=== PATIENT | female | born 1955 | race Caucasian/White ===

== ENCOUNTER 2016-12-06 16:38 | Emergency (ER) | payer OTHER ==
[~2016-12-06] VITALS: Ht 167.6 cm; Wt 65.8 kg
[~2016-12-06 16:38] MED LIST: ASPIRIN81 M4 PO; ATENOLOL25 MG PO; ATORVASTATIN CA20 M1 PO; BUTALB-ACETAMI1 EACH PO; CARAFATE1 GM/10 ML PO; CYCLOBENZAPRINE5 M2 PO; FIORICET 50-301 EACH PO; FIORINAL 325 M1 CAP PO; IMITREX6 MG/0.51 SC; LORAZEPAM0.5 M1 PO; LORAZEPAM0.5 MG PO; MECLIZINE HCL12.5 M1 PO; PREDNISONE10 M2 PO; REGLAN10 M1 PO; REGLAN10 MG PO; SUMATRIPTA6 MG/0.51; VALIUM5 M1 PO; WELLBUTRIN100 M1; ZOFRAN ODT4 MG PO
--- NOTE | 2016-12-06 17:11 | ED HEADACHE COMPLAINT ---
History of Present Illness General Chief Complaint: Headache Stated Complaint: REYES [id number] Source: patient, old records Exam Limitations: no limitations Vital Signs & Intake/Output Vital Signs & Intake/Output Vital Signs Date Time Temp Pulse Resp B/P Pulse O2 O2 Flow FiO2 Ox Delivery Rate 12/06 1916 97.5 66 18 138/84 97 Room Air Room Air 12/06 1643 97.8 70 20 157/87 96 Room Air Allergies Coded Allergies: hydromorphone (Severe, THROAT FEELS LIKE IT'S CLOSING/RASH 12/06/16) dexlansoprazole (RASH 12/06/16) NSAIDS (Non-Steroidal Anti-Inflamma (ABDOMINAL PAIN 12/06/16) Reconcile Medications Aspirin (Aspirin*) 81 MG TAB.CHEW 81 MG PO DAILY blood Butalb/Acetaminophen/Caffeine (Fioricet 50-300-40 MG Capsule) 50 MG-300 MG-40 MG CAPSULE 1-2 CAP PO Q6PRN PRN headache (Reported) Diazepam (Valium) 5 MG TABLET 1 TAB PO BID PRN PAIN Levothyroxine Sodium 25 MCG TABLET 1 TAB PO DAILY THYROID (Reported) Lorazepam 0.5 MG TABLET 0.5 TAB PO QHS PRN anxiety (Reported) Meclizine HCl 12.5 MG TABLET 1 TAB PO PRN DIZZINESS (Reported) Methylprednisolone. (Medrol) 4 MG TAB.DS.PK 1 DP PO AD MIGRAINE 6 on day 1 then reduce by one tablet daily until gone Metoclopramide HCl (Reglan) 10 MG TABLET 1 TAB PO 4 TIMES/DAY nausea ( Reported) 30 minutes before meals and bedtime Triage Note: TRIAGE: PT TO ER C/C HEAD PAIN SINCE FRIDAY. TRIED FIORICET, IMITREX, RELPAX, ASPIRIN AND TYLENOL WITH NO RELIEF. HX OF MIGRAINES. Triage Nurses Notes Reviewed? yes Onset: Gradual Duration: week(s): (1), constant Timing: recent history Quality/Severity: moderate Severity Numbers: 6 Head Injury Location: occipital No Modifying Factors: none Associated Symptoms: denies HPI: This is a 61-year-old female with history of migraines who is neurologist is out of [place] presents today complaining of persistent posterior headache that she's had for the past 1 week for which she is discharged all of her medications including Imitrex Relpax Tylenol aspirin fioricet without improvement. She states this feels like a typical migraine. She denies any vision changes at this time are states that intermittently she has blurry vision which is not new. She denies any nausea or vomiting. There is been no recent fall or head trauma no fever no chills no neck pain or stiffness. She denies any chest pain abdominal pain shortness of breath or any other symptoms. (KAREN MOSCOSO) Past History Travel History Traveled to [place] past 21 day No Medical History Any Pertinent Medical History? 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 No (KAREN MOSCOSO) Review of Systems Review of Systems Constitutional: Reports: see HPI. All Other Systems: Reviewed and Negative Comments Review of systems: See HPI, All other systems negative. Constitutional, no chills no fever, no malaise HEENT: no sore throat no congestion Cardiovascular: No chest pain , no palpitation Skin, no jaundice no rashes, no change in skin Respiratory: No dyspnea no cough no sputum GI: No nausea no vomiting, no diarrhea, : No dysuria Muscle skeletal: No joint pain, no back pain, no neck pain, Neurologic: No numbness, headache Psych: No stress Heme/endocrine: No bruising no bleeding Immunology: No lymphadenopathy (KAREN MOSCOSO) Physical Exam Physical Exam General Appearance: well developed/nourished, no apparent distress, alert, awake Cranial Nerves: normal hearing, normal speech, PERRL Comments: Well-developed well-nourished person in no acute distress HEENT: Normal EENT exam; PERRL, EOMI, no nystagmus. HEAD is atraumatic. moist mucous membranes. no facial tenderness Neck: Supple, no lymphadenopathy, normal range of motion without pain or tenderness Back: Nontender, no CVA tenderness. Full range of motion Cardiovascular: Regular rate and rhythms no murmurs rubs Respiratory: No respiratory distress. Patient speaking in full complete sentences. Breath sounds clear to auscultation bilaterally: NO W/R/R Abdomen: Soft, nontender nondistended, Extremity: No edema, full range of motion of extremities, normal and equal pulses bilaterally, 5 out of 5 strength noted to bilateral upper and lower extremities Neuro: Alert oriented x3, motor sensory normal, cranial nerves II through XII grossly intact. There were no obvious focal neurologic abnormalities. Negative Brudzinski's Skin: No appreciable rash on exposed skin, skin is warm and dry. Psych: Mood and affect is normal, memory and judgment is normal. Core Measures Severe Sepsis Present: No Septic Shock Present: No (KAREN MOSCOSO) Progress Differential Diagnosis: cluster REYES, encephalitis, IC mass/tumor, intracranial Hem., meningitis, migraine REYES, musculoskeletal pain, sinusitis, subarach. Hem., tension REYES Plan of Care: Current Medications Sig/David Start time Last Medication Dose Stop Time Status Admin Sodium Chloride 1,000 ML BOLUS ONE 12/06 1730 AC (Normal Saline 0.9%) 12/06 1829 Dexamethasone 4 MG ONCE ONE 12/06 1715 AC (Decadron) 12/06 1744 Dextrose/Water 50 ML (D5W) There is been no recent fall or trauma. Patient reports that when she's been administered steroids in addition to pain medicine that helps her migraines. The allergies were reviewed with the patient she states that anti-inflammatories upset her stomach however she's had no past history of allergic reactions to anti-inflammatories. Patient has been medicated multiple times in the past with Toradol with good effect she is allergic to Dilaudid IV fluids ordered imaging was deferred which the patient is agreement with. 1899 reevaluation patient reports improvement in her headache prescription for Medrol Dosepak and Valium provided advised she continue with her migraine medications as prescribed follow-up with her neurologist on Friday and return anytime sooner if patient feels comfortable plan (KAREN MOSCOSO) Departure Departure Time of Disposition: 1857 Disposition: HOME OR SELF CARE Condition: Stable Clinical Impression Primary Impression: Migraine Referrals: LISBET LEARY,STACEY Aponte (PCP/Family) Additional Instructions: Follow-up with your primary care physician as well as neurologist on Friday. Valium and Medrol Dosepak as directed these prescriptions were sent to your pharmacy continue taking her migraine medication as directed return anytime sooner with any concerns Departure Forms: Customer Survey General Discharge Information Prescriptions: Current Visit Scripts Diazepam (Valium) 1 TAB PO BID PRN PAIN #10 TAB Methylprednisolone. (Medrol) 1 DP PO AD #1 DP 6 on day 1 then reduce by one tablet daily until gone (YANELY GARCIA,KAREN) PA/[employer] Co-Sign Statement Statement: ED Attending supervision documentation- [] I saw and evaluated the patient. I have also reviewed all the pertinent lab results and diagnostic results. I agree with the findings and the plan of care as documented in the PA's/[employer]'s documentation. [x] I have reviewed the ED Record and agree with the PA's/[employer]'s documentation. [] Additions or exceptions (if any) to the PAs/[employer]'s note and plan are summarized below: [] (LEATHA LEARY,ROB Victor)
[2016-12-06] MEDS ORDERED: LEVOTHYROXINE25 MCG PO (18:38)
[2016-12-06] MEDS ORDERED: VALIUM5 M2 PO (19:00)
[2016-12-06] MEDS ORDERED: MEDROL4 M2 PO (19:00)
[2016-12-06 19:17] VITALS: BP 138/84
== END 2016-12-06 19:18 ==
LOC: ERH 16:38
DX: G43.909 Migraine, unspecified, not intractable, without status migrainosus (principal)
CPT/HCPCS: 96361; 96374; 96375; J1100; J1200; J1885

== ENCOUNTER 2016-12-11 10:31 | Emergency (ER) | payer OTHER ==
[~2016-12-11] VITALS: Ht 167.6 cm; Wt 65.8 kg
[~2016-12-11 10:31] MED LIST changes: +LEVOTHYROXINE25 MCG PO; +MEDROL4 M2 PO; +VALIUM5 M2 PO
[2016-12-11 13:46] VITALS: BP 145/75
--- NOTE | 2016-12-11 14:27 | ED GENERAL ADULT ---
History of Present Illness General Chief Complaint: General Adult Stated Complaint: RAPID RESPONSE AT OUTPT LAB,N/V, ABD CRAMP,RESTLES Source: patient, old records, friend Exam Limitations: no limitations Vital Signs & Intake/Output Vital Signs & Intake/Output Vital Signs Date Time Temp Pulse Resp B/P Pulse O2 O2 Flow FiO2 Ox Delivery Rate 12/11 1346 73 16 145/75 96 Room Air 12/11 1259 97.6 74 16 144/69 95 Room Air 12/11 1200 98.0 12/11 1157 98.0 74 22 135/64 96 Room Air 12/11 1109 97 12/11 1033 98.2 80 18 172/80 97 Room Air Allergies Coded Allergies: hydromorphone (Severe, THROAT FEELS LIKE IT'S CLOSING/RASH 12/06/16) dexlansoprazole (RASH 12/06/16) NSAIDS (Non-Steroidal Anti-Inflamma (ABDOMINAL PAIN 12/06/16) Reconcile Medications Aspirin (Aspirin*) 81 MG TAB.CHEW 81 MG PO DAILY blood Butalb/Acetaminophen/Caffeine (Fioricet 50-300-40 MG Capsule) 50 MG-300 MG-40 MG CAPSULE 1-2 CAP PO Q6PRN PRN headache (Reported) Diazepam (Valium) 5 MG TABLET 1 TAB PO BID PRN PAIN Levothyroxine Sodium 25 MCG TABLET 1 TAB PO DAILY AC THYROID (Reported) Lorazepam 0.5 MG TABLET 0.5 TAB PO QHS PRN anxiety (Reported) Meclizine HCl 12.5 MG TABLET 1 TAB PO PRN DIZZINESS (Reported) Methylprednisolone. (Medrol) 4 MG TAB.DS.PK 1 DP PO AD MIGRAINE 6 on day 1 then reduce by one tablet daily until gone Metoclopramide HCl (Reglan) 10 MG TABLET 1 TAB PO 4 TIMES/DAY nausea ( Reported) 30 minutes before meals and bedtime Core Measure Meds Pre-Hospital aspirin Triage Note: PT BROUGHT OVER FROM BLOOD DRAW. PT WAS GETTING BLOOD DRAWN THIS AM AND AND STATES SHE FELT SICK PT STATES SHE HAS BEEN SHAKY AND RESTLESS WITH LIGHTHEADEDNESS. PT STATES SHE HAS BEEN GETTING REYES AND NAUSEA FOR A FEW WEEKS. PT WAS HERE TO GET LABS DRAWN THAT HER PCP ORDERED. Triage Nurses Notes Reviewed? yes Onset: Just prior to arrival Duration: minute(s):, constant, continues in ED Timing: recent history Injury Environment: blood draw Severity: severe No Modifying Factors: none LMP (ages 10-50): post menopausal : No Patient currently breastfeeds: No HPI: Prior to admission while having blood drawn patient became lightheaded dizzy week with palpitations anxiety diaphoresis and headache She also complains of chronic abdominal pain loss of appetite nausea. She denies fever chills chest pain cough shortness of breath dysuria rash bleeding. She feels issues may be related to thyroid medication. Past History Travel History Traveled to [place] past 21 day No Medical History Any Pertinent Medical History? 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 No Review of Systems Review of Systems Constitutional: Reports: see HPI, malaise, weakness. EENTM: Reports: no symptoms. Respiratory: Reports: no symptoms. Cardiovascular: Reports: no symptoms. GI: Reports: see HPI, abdominal pain, nausea. Genitourinary: Reports: no symptoms. Musculoskeletal: Reports: no symptoms. Skin: Reports: no symptoms. Neurological/Psychological: Reports: see HPI, confusion. Hematologic/Endocrine: Reports: no symptoms. Immunologic/Allergic: Reports: no symptoms. All Other Systems: Reviewed and Negative Physical Exam Physical Exam General Appearance: well developed/nourished, no apparent distress, awake, anxious, moderate distress, thin Head: atraumatic, normal appearance Eyes: Bilateral: normal appearance, PERRL, EOMI. Ears, Nose, Throat: normal pharynx, normal ENT inspection Neck: normal inspection, supple, full range of motion, no midline tenderness Respiratory: normal breath sounds, chest non-tender, no respiratory distress, quiet respiration, lungs clear Cardiovascular: regular rate/rhythm, normal peripheral pulses, norml femoral pulses equa Peripheral Pulses: 4+ carotid (R), 4+ carotid (L), 2+ radial (R), 2+ radial (L) Gastrointestinal: normal bowel sounds, soft, non-tender, no organomegaly Back: normal inspection, normal range of motion Extremities: normal inspection, normal capillary refill, normal range of motion, no edema Neurologic/Psych: no motor/sensory deficits, awake, alert, oriented x 3, clean out driller II- XII nml as tested Reflexes: 2+: bicep (R), bicep (L). Skin: intact, normal color, warm/dry Lymphatic: no anterior cervical alexandro Core Measures ACS in differential dx? Yes CVA/TIA Diagnosis: No Severe Sepsis Present: No Septic Shock Present: No Progress Differential Diagnoses I considered the following diagnoses in my evaluation of the patient: Acute [place] medication reaction hypoglycemia Plan of Care: Orders Procedure Date/time Status EKG 12/11 1051 Active Add-on Test (ER Only) 12/11 105 Active Initial ED EKG: normal axis, normal intervals, normal p-waves, normal QRS complex, normal sinus rhythm, no ST T wave changes Prior EKG: unchanged Rhythm Strip: normal sinus rhythm Departure Departure Time of Disposition: 1424 Disposition: HOME OR SELF CARE Condition: Stable Clinical Impression Primary Impression: Palpitations Secondary Impressions: Abdominal pain Qualifiers: Abdominal location: unspecified location Qualified Code: R10.9 - Unspecified abdominal pain Medication reaction Referrals: LISBET LEARY,STACEY Aponte (PCP/Family) Departure Forms: Customer Survey General Discharge Information Critical Care Note Critical Care Note Critical Care Time: non-applicable
== END 2016-12-11 14:44 ==
LOC: ERH 10:31
DX: T50.905A Adverse effect of unspecified drugs, medicaments and biological substances, initial encounter (principal); R00.2 Palpitations; R10.9 Unspecified abdominal pain
CPT/HCPCS: 93005; 93010; 96365; 96375; J0131; J2405

== ENCOUNTER 2017-02-18 10:10 | Emergency (ER) | payer OTHER ==
[~2017-02-18] VITALS: Ht 167.6 cm; Wt 64.4 kg
--- NOTE | 2017-02-18 11:16 | ED GENERAL ADULT ---
History of Present Illness General Chief Complaint: Headache Stated Complaint: MIGRAINE Source: patient, old records Exam Limitations: no limitations Vital Signs & Intake/Output Vital Signs & Intake/Output Vital Signs Date Time Temp Pulse Resp B/P Pulse O2 O2 Flow FiO2 Ox Delivery Rate 02/18 1730 71 18 144/68 968 Room Air 02/18 1725 97.0 77 18 139/74 98 02/18 1530 97.8 02/18 1510 85 18 145/70 98 Room Air 02/18 1258 87 18 142/69 97 Room Air 02/18 1235 67 18 169/76 96 Room Air 02/18 1152 Room Air 02/18 1018 97.5 74 20 135/80 99 Room Air Allergies Coded Allergies: hydromorphone (Severe, THROAT FEELS LIKE IT'S CLOSING/RASH 12/06/16) dexlansoprazole (RASH 12/06/16) NSAIDS (Non-Steroidal Anti-Inflamma (ABDOMINAL PAIN 12/06/16) Reconcile Medications Butalb/Acetaminophen/Caffeine (Fioricet 50-300-40 MG Capsule) 50 MG-300 MG-40 MG CAPSULE 1-2 CAP PO Q6PRN PRN headache (Reported) Levothyroxine Sodium 25 MCG TABLET 1 TAB PO DAILY AC THYROID (Reported) Lorazepam 0.5 MG TABLET 0.5 TAB PO DAILY ANXIETY (Reported) Lorazepam (Ativan) 1 MG TABLET 1 TAB PO QPM ANXIETY (Reported) Meclizine HCl 12.5 MG TABLET 1 TAB PO PRN DIZZINESS (Reported) Ondansetron (Zofran Odt) 4 MG TAB.RAPDIS 1 TAB SL TID PRN NAUSEA/VOMITING ( Reported) Triage Note: PT TO ED C/O MIGRAINE "ON AND OFF" FOR A FEW WEEKS. HAS BEEN TAKING MEDS WITH NO RELIEF. PT ALSO C/O ABD CRAMPING AND NECK PAIN FOR A FEW WEEKS. C/O N/D, DENIES VOMITING. Triage Nurses Notes Reviewed? yes Onset: Gradual Duration: week(s): (2) Timing: recent history Injury Environment: home Severity: moderate Severity Numbers: 8 No Modifying Factors: none HPI: Patient is a 61-year-old female with history of migraines presenting to the emergency Department chief complaint of frontal headache going on for the past 2 weeks. Patient reports to spend coming and going, little to no relief with medications that she takes for migraines. Denies any fevers or chills. Positive nausea but no vomiting. Symptoms were worse last night associated to come in today. She was up all night with her headache. She took one dose of her migraine medication yesterday but nothing overnight. Also reports that this morning she woke up and started developing some abdominal discomfort and cramping and diarrhea. She's had 3 episodes of nonbloody diarrhea. No vomiting. Denies recent antibiotic use. This feels similar to migraines that she gets but it is lasting longer than usual. Denies any visual changes. (KARMA MCARTHUR) Past History Travel History Traveled to [place] past 21 day No Medical History Any Pertinent Medical History? 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 No (KARMA MCARTHUR) Review of Systems Review of Systems Constitutional: Reports: malaise. Comments Review of systems: See HPI, All other systems negative. Constitutional, no chills fever or weight loss HEENT: No visual changes no sore throat no congestion Cardiovascular: No chest pain ,palpitation , orthopnea or ankle swelling Skin, no jaundice no rashes Respiratory: No dyspnea cough sputum or hemoptysis GI: no vomiting : No dysuria No hematuria Muscle skeletal: no back pain, no neck pain, Neurologic: No numbness no confusion Psych: No increased stress anxiety or depression,. Heme/endocrine: No bruising no bleeding no polyuria or polydipsia Immunology: No splenectomy or history of AIDS (KARMA MCARTHUR) Physical Exam Physical Exam General Appearance: well developed/nourished, no apparent distress, alert, awake , comfortable Comments: Well-developed well-nourished person in no acute distress HEENT: Normal EENT exam, extraocular motion intact, no nystagmus. Pupils equally round and reactive to light and accommodation. Nose is atraumatic. External auditory canal and Tympanic membranes clear. Pharynx normal. No swelling or edema. Mild tenderness to palpation over the frontal bone. Funduscopic: Somewhat limited secondary did not elevation although no obvious retinal detachment or penis making appreciated. Neck: Supple, no lymphadenopathy, normal range of motion without pain or tenderness. No meningeal signs. Negative Kernig's and Brudzinski's. Back: Nontender Cardiovascular: Regular rate and rhythms no murmurs rubs or gallops, normal JVP Respiratory: Chest nontender. No respiratory distress.breath sounds clear to auscultation bilaterally Abdomen: Soft, mildly tender to palpation in the left lower quadrant without rebound or guarding, nondistended, no appreciable organomegaly. Normal bowel sounds. No ascites Extremity: No edema Neuro: Alert oriented x3, motor sensory normal, cranial nerves II through XII grossly intact. Cerebellar testing is unremarkable. Skin: No appreciable rash on exposed skin, skin is warm and dry. Psych: Mood and affect is normal, memory and judgment is normal. Core Measures ACS in differential dx? No CVA/TIA Diagnosis: No Severe Sepsis Present: No Septic Shock Present: No (RAMSES GARCIA,KARMA) Progress Differential Diagnoses I considered the following diagnoses in my evaluation of the patient: Migraine headache, meningitis, dehydration, electrolyte abnormality, viral syndrome, viral labyrinthitis, Mnire's disease Plan of Care: Orders Procedure Date/time Status Heart Healthy Diet 02/18 L Active TOTAL TRIODOTHYROXINE 02/18 1125 Complete FREE T4 02/18 1125 Complete URINALYSIS 02/18 1115 Complete TSH REFLEX 02/18 1115 Complete LIPASE 02/18 1115 Complete WESTERGREN SED RATE 02/18 1115 Complete COMPREHENSIVE METABOLIC PANEL 02/18 1115 Complete CBC WITHOUT DIFFERENTIAL 02/18 1115 Complete AMYLASE 02/18 1115 Complete Laboratory Tests 02/18/17 1208: Urine Color STRAW, Urine Clarity CLEAR, Urine pH 7.0, Ur Specific Worden <= 1.005, Urine Protein NEG, Urine Ketones NEG, Urine Nitrite NEG, Urine Bilirubin NEG, Urine Urobilinogen 0.2, Ur Leukocyte Esterase NEG, Ur Microscopic EXAM NOT REQUIRED, Urine Hemoglobin NEG, Urine Glucose NEG 02/18/17 1125: Anion Gap 9, Estimated GFR > 60, BUN/Creatinine Ratio 8.3, Glucose 88, Calcium 9.7, Total Bilirubin 0.6, AST 17, ALT 34, Alkaline Phosphatase 62, Total Protein 6.8, Albumin 4.1, Globulin 2.7, Albumin/Globulin Ratio 1.5, Amylase 50, Lipase 117, Free T4 0.97, Total T3 1.65, TSH &T3 &Free T4 Intrp 6.550 H, CBC w Diff NO MAN DIFF REQ, RBC 4.65, MCV 89.2, MCH 30.1, RDW 13.3, MPV 8.4, Gran % 63.9, Lymphocytes % 26.9, Monocytes % 6.1, Eosinophils % 1.4, Basophils % 1.7, Absolute Granulocytes 3.6, Absolute Lymphocytes 1.5, Absolute Monocytes 0.3, Absolute Eosinophils 0.1, Absolute Basophils 0.1, PUBS MCHC 33.7, ESR Westergren 3 Diagnostic Imaging: Viewed by Me: CT Scan. Discussed w/RAD: CT Scan. Radiology Impression: PATIENT: RED CHAVEZ PRESENT AGE: 61 PATIENT ACCOUNT NO: [id number] : 53 LOCATION: [facility] ORDERING PHYSICIAN: KARMA GARCIA SERVICE DATE: 02/18/17 EXAM TYPE: CAT - CT HEAD WO IV CONTRAST EXAMINATION: CT HEAD WITHOUT CONTRAST CLINICAL INFORMATION: Headaches. No relief with medication. COMPARISON: 09/12/2016 TECHNIQUE: Contiguous axial imaging was performed from the skull base to vertex without intravenous contrast. DLP: 682 mGy-cm. FINDINGS: There is no evidence of acute intracranial hemorrhage or territorial infarction. No abnormal mass effect or midline shift is seen. Domínguez to white matter differentiation is well preserved. No extra-axial fluid collections are identified. No hydrocephalus. Cavum septum pellucidum and vergae. No significant volume loss. There is no abnormal attenuation within the brain parenchyma. The osseous structures and soft tissues are normal. The mastoid air cells and visualized portions of the paranasal sinuses are well aerated. IMPRESSION: No acute intracranial pathology. DICTATED BY: GUALBERTO LEARY,KAMALA DATE/TIME DICTATED:02/18/171356 ORGANIZATIONAL CONSULTANT:OSMEL DATE/TIME TRANSCRIBED:02/18/171356 CONFIDENTIAL, DO NOT COPY WITHOUT APPROPRIATE AUTHORIZATION. <Electronically signed in Other Vendor System> SIGNED BY: KAMALA BURCIAGA MD 02/18/17 1402 Initial ED EKG: none Comments: 02/18/2017 11:49:24 AM patient medicated with IV fluids, Phenergan arrival for headache. We'll assess CBC, CMP, thyroid function. Patient has negative meningeal sounds and is afebrile. Unlikely meningitis. Patient has history of migraines and feels similarly, likely exacerbation of migraine or viral syndrome on top of migraine. 02/18/2017 12:16:41 PM patient having little to no relief with Phenergan. Patient will be medicated with medication she was given last visit. Patient reports that the Toradol and the lorazepam helped. 02/18/2017 1:03:52 PM patient reports little change in symptoms after Toradol and lorazepam. Still feeling dizzy. Secondary to questionable history of TIA in the past patient will go for CT of the head. Patient is neurologically intact. 02/18/2017 4:45:37 PM patient reports that the headache is feeling much better after rest. Patient reports that she still feeling drowsy after the medications. Unable to have anyone pick her up. She will wait here for the next little while, given dinner. Patient will be discharged home once drowsiness from medication has worn off. (KARMA MCARTHUR) Departure Departure Time of Disposition: 163 Disposition: HOME OR SELF CARE Condition: Stable Clinical Impression Primary Impression: Migraine Qualifiers: Migraine type: unspecified Status migrainosus presence: without status migrainosus Intractability: not intractable Qualified Code: G43.909 - Migraine, unspecified, not intractable, without status migrainosus Referrals: LISBET LEARY,STACEY Aponte (PCP/Family) Additional Instructions: Follow-up with your primary care physician call to make an appointment. Take all medications for migraines. Increase fluid intake. Return for worsening symptoms or concerns. Departure Forms: Customer Survey General Discharge Information (KARMA MCARTHUR) PA/OTA Co-Sign Statement Statement: ED Attending supervision documentation- [] I saw and evaluated the patient. I have also reviewed all the pertinent lab results and diagnostic results. I agree with the findings and the plan of care as documented in the PA's/OTA's documentation. [x] I have reviewed the ED Record and agree with the PA's/OTA's documentation. [] Additions or exceptions (if any) to the PAs/OTA's note and plan are summarized below: [] (ZEE MASON,MAURILIO Urbina) Critical Care Note Critical Care Note Critical Care Time: non-applicable (RAMSES GARCIA,KARMA)
[2017-02-18 11:32] LABS: ABSOLUTE BASOPHIL COUNT 0.1 /CUMM (0.0-0.2); ABSOLUTE EOSINOPHIL COUNT 0.1 /CUMM (0.0-0.7); ABSOLUTE GRANULOCYTE CT 3.6 /CUMM (1.4-6.5); ABSOLUTE LYMPH COUNT 1.5 /CUMM (1.2-3.4); ABSOLUTE MONOCYTE COUNT 0.3 /CUMM (0.10-0.60); BASOPHIL % 1.7 % (0.0-2.0); EOSINOPHIL % 1.4 % (0-5); GRANULOCYTE % 63.9 % (42.2-75.2); HEMATOCRIT 41.5 % (37-47); MEAN CORPUSCULAR HGB 30.1 PG (27.0-31.0); MEAN CORPUSCULAR HGB CONC 33.7 G/DL (33.0-37.0); MEAN CORPUSCULAR VOLUME 89.2 FL (81.0-99.0); MEAN PLATELET VOLUME 8.4 FL (7.4-10.4); PLATELET COUNT 236 /CUMM (130-400); RBC DISTRIBUTION WIDTH 13.3 % (11.5-14.5); RED BLOOD CELL CT 4.65 /CUMM (4.20-5.40); WHITE BLOOD CELL COUNT 5.6 /CUMM (4.8-10.8)
[2017-02-18] MEDS ORDERED: ATIVAN1 M1 PO (12:09)
[2017-02-18] MEDS ORDERED: ZOFRAN ODT4 M1 SL (12:10)
--- NOTE | 2017-02-18 14:02 | CT SCAN REPORT ---
EXAMINATION: CT HEAD WITHOUT CONTRAST CLINICAL INFORMATION: Headaches. No relief with medication. COMPARISON: 09/12/2016 TECHNIQUE: Contiguous axial imaging was performed from the skull base to vertex without intravenous contrast. DLP: 682 mGy-cm. FINDINGS: There is no evidence of acute intracranial hemorrhage or territorial infarction. No abnormal mass effect or midline shift is seen. Domínguez to white matter differentiation is well preserved. No extra-axial fluid collections are identified. No hydrocephalus. Cavum septum pellucidum and vergae. No significant volume loss. There is no abnormal attenuation within the brain parenchyma. The osseous structures and soft tissues are normal. The mastoid air cells and visualized portions of the paranasal sinuses are well aerated. IMPRESSION: No acute intracranial pathology.
[2017-02-18 17:30] VITALS: BP 144/68
== END 2017-02-18 17:35 ==
LOC: ERH 10:10
PROVIDERS: Physician Assistant
DX: G43.909 Migraine, unspecified, not intractable, without status migrainosus (principal)
CPT/HCPCS: 81003; 96374; 96375; J1200; J1885; J2550

== ENCOUNTER 2017-03-11 12:24 | Inpatient (IN) | payer OTHER ==
[~2017-03-11] VITALS: Ht 167.6 cm; Wt 64.4 kg
[~2017-03-11 12:24] MED LIST changes: +ATIVAN1 M1 PO; +ZOFRAN ODT4 M1 SL
--- NOTE | 2017-03-11 12:33 | NUR ---
PT SENT IN BY STACEY RFAUSTO WHO WOULD LIKE PT CHECKED R/ [place] OR POSSIBLE TIA. PT WITH HX OF MIGRAINES, WEAKNESS AND FEELING DIZZY. LAST EVENING ABOUT 0400 PT HAD CHEST PAIN THAT LASTED 5 HOURS AND SOME NAUSEA AND DIAPHORESIS. AT 0700 PT HAD SOME LIP NUMBNESS. PT CAN BE REACHED AT [phone] OR HIS CELL IS [phone].
--- NOTE | 2017-03-11 13:42 | NUR ---
TAKEN TO RADIOLOGY FROM WAITING ROOM; THEN TO GO TO ROOM 1
--- NOTE | 2017-03-11 14:10 | NUR ---
BLOODWORK, BLUE,TIERNEY,LAV,SST AND PINK TOP TUBES DRAWN VIA STRAIGHT STICK, SENT TO LAB.
[2017-03-11 14:19] LABS: ABSOLUTE BASOPHIL COUNT 0 /CUMM (0.0-0.2); ABSOLUTE EOSINOPHIL COUNT 0 /CUMM (0.0-0.7); ABSOLUTE GRANULOCYTE CT 5.6 /CUMM (1.4-6.5); ABSOLUTE LYMPH COUNT 1.6 /CUMM (1.2-3.4); ABSOLUTE MONOCYTE COUNT 0.4 /CUMM (0.10-0.60); BASOPHIL % 0.3 % (0.0-2.0); EOSINOPHIL % 0.5 % (0-5); HEMATOCRIT 41.5 % (37-47); MEAN CORPUSCULAR HGB 29.9 PG (27.0-31.0); MEAN CORPUSCULAR VOLUME 87.9 FL (81.0-99.0); MEAN PLATELET VOLUME 8.2 FL (7.4-10.4); PLATELET COUNT 241 /CUMM (130-400); RBC DISTRIBUTION WIDTH 13.2 % (11.5-14.5); RED BLOOD CELL CT 4.73 /CUMM (4.20-5.40); WHITE BLOOD CELL COUNT 7.7 /CUMM (4.8-10.8)
--- NOTE | 2017-03-11 14:21 | RADIOLOGY REPORT ---
EXAMINATION: XR PORTABLE CHEST CLINICAL INFORMATION: Neck pain, SOB. Dizziness. COMPARISON: Chest 09/11/2016. TECHNIQUE: Portable AP view of the chest was obtained. FINDINGS: Both lungs are well-expanded and clear of acute process. Heart size and pulmonary vascularity is normal. No gross bony abnormality seen. IMPRESSION: Unremarkable chest exam.
--- NOTE | 2017-03-11 15:20 | ED HEADACHE COMPLAINT ---
History of Present Illness General Chief Complaint: General Adult Stated Complaint: HX TIA NECK PAIN L SHOULDER PAIN REYES Source: patient Exam Limitations: no limitations Vital Signs & Intake/Output Vital Signs & Intake/Output Vital Signs Date Time Temp Pulse Resp B/P Pulse O2 O2 Flow FiO2 Ox Delivery Rate 03/11 1727 96.0 80 18 135/60 100 Room Air 03/11 1510 97.0 67 18 161/86 98 Room Air 03/11 1412 98 Room Air Room Air 03/11 1234 98.3 82 20 174/73 99 Room Air Allergies Coded Allergies: hydromorphone (Severe, THROAT FEELS LIKE IT'S CLOSING/RASH 12/06/16) dexlansoprazole (RASH 12/06/16) promethazine (From PHENERGAN) (ANXIETY 03/11/17) NSAIDS (Non-Steroidal Anti-Inflamma (ABDOMINAL PAIN 12/06/16) Reconcile Medications Acetaminophen (Tylenol Extra Strength) 500 MG TABLET 1 TAB PO PRN PAIN ( Reported) Aspirin (Aspirin*) 81 MG TAB.CHEW 1 TAB PO DAILY STROKE PREVENTION Butalb/Acetaminophen/Caffeine (Fioricet 50-300-40 MG Capsule) 50 MG-300 MG-40 MG CAPSULE 1-2 CAP PO Q6PRN PRN headache (Reported) Lorazepam 0.5 MG TABLET 0.5 TAB PO DAILY ANXIETY (Reported) Lorazepam (Ativan) 0.5 MG TABLET 1 TAB PO QPM ANXIETY (Reported) Meclizine HCl 12.5 MG TABLET 1 TAB PO PRN DIZZINESS (Reported) Ondansetron (Zofran Odt) 4 MG TAB.RAPDIS 1 TAB SL TID PRN NAUSEA/VOMITING ( Reported) Simvastatin (Zocor*) 20 MG TABLET 1 TAB PO DAILY HIGH CHOLESTROL Triage Note: PT SENT IN BY STACEY FRAUSTO WHO WOULD LIKE PT CHECKED R/ [place] OR POSSIBLE TIA. PT WITH HX OF MIGRAINES, WEAKNESS AND FEELING DIZZY. LAST EVENING ABOUT 0400 PT HAD CHEST PAIN THAT LASTED 5 HOURS AND SOME NAUSEA AND DIAPHORESIS. AT 0700 PT HAD SOME LIP NUMBNESS. PT CAN BE REACHED AT [phone] OR HIS CELL IS [phone]. Triage Nurses Notes Reviewed? yes HPI: This patient is a 61-year-old female with a past medical history including TIA who presented to the emergency department today for evaluation of multiple complaints. The patient reported that yesterday she started to feel some pain that got up to a 7 out of 10 in her left side under her left breast. The patient reported that that lasted approximately 5 hours before it resolved. She reported that she is currently feeling, "small stabbing pains," in the same area. She reported that last night while she is having the symptoms she also had approximately an hour to 2 hours of left-sided mouth tingling, left face numbness, and weakness in her left arm. The patient reported that she had a TIA several years ago at which time she was on heparin. She was not on any maintenance anticoagulation after that. The patient reported that she did need to have physical therapy afterwards for balance problems. However, she denied any other associated residual symptoms such as facial droop or weakness. The patient reported that she does have a history of migraines that can last up to 3 or 4 days. She did not have a migraine yesterday, but today is feeling pain in her neck. She denies any abdominal pain, nausea, vomiting, or difficulty breathing. (LANDON PAUL PA-C) Past History Travel History Traveled to [place] past 21 day No Medical History Any Pertinent Medical History? 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 No (LANDON PAUL PA-C) Review of Systems Review of Systems Constitutional: Reports: no symptoms. Eyes: Reports: no symptoms. Ears, Nose, Throat, Mouth: Reports: no symptoms. Respiratory: Reports: no symptoms. Cardiovascular: Reports: see HPI. Gastrointestinal/Abdominal: Reports: no symptoms. Genitourinary: Reports: no symptoms. Musculoskeletal: Reports: no symptoms. Skin: Reports: no symptoms. Neurological/Psychological: Reports: see HPI. All Other Systems: Reviewed and Negative (LANDON PAUL PA-C) Physical Exam Physical Exam Cranial Nerves: normal hearing, normal speech, PERRL, facial asymmetry, SLIGHT, LEFT SIDED DROOP OF THE CORNER OF THE MOUTH. nO TONGUE DEVIATION. nO GAZE PALSY. nO FACIAL WEAKNESS. nO FACIAL PARESTHESIAS Comments: Well-developed well-nourished person in no acute distress HEENT: Normal EENT exam, head normocephalic, moist mucous membranes Pupils equally round and reactive to light. Neck: Supple, no lymphadenopathy Back: Normal inspection. Normal gait Cardiovascular: Regular rate and rhythm with no murmurs, rubs, or gallops Respiratory: Chest nontender. No respiratory distress. Breath sounds clear to auscultation bilaterally Abdomen: Soft, nontender and nondistended Extremity: No edema, no calf tenderness to palpation, normal and equal pulses. Neuro: Alert oriented x3, motor sensory normal, cranial nerves II through XII grossly intact. 3 out of 5 left metal tank builder strength. 5 out of 5 right metal tank builder strength Skin: No appreciable rash on exposed skin, skin is warm and dry. Psych: Mood and affect is normal Core Measures Severe Sepsis Present: No Septic Shock Present: No (BEVERLY BOWLES,LANDON) Progress Differential Diagnosis: carotid dissection, cav sinus thromb, cluster REYES, encephalitis, IC mass/tumor, intracranial Hem., meningitis, migraine REYES, musculoskeletal pain, sinusitis, subarach. Hem., tension REYES, temporal arteritis, TIA/CVA Plan of Care: Orders Procedure Date/time Status Regular Diet 03/11 D Active Patient Data 03/11 1810 Active OXYGEN SETUP (GEN) 03/11 180 Active Saline Lock 03/11 180 Active Admit to inpatient 03/11 1803 Active Vital Signs 03/11 1803 Active Activity/Ambulation 03/11 1803 Active Code Status 03/11 1803 Active EKG 03/11 1616 Active TROPONIN LEVEL 03/11 1237 Complete MAGNESIUM 03/11 1237 Complete COMPREHENSIVE METABOLIC PANEL 03/11 1237 Complete CHOLESTEROL 03/11 1237 Complete CBC WITHOUT DIFFERENTIAL 03/11 1237 Complete EKG 03/11 1229 Active Laboratory Tests 03/11/17 1405: Anion Gap 10, Estimated GFR > 60, BUN/Creatinine Ratio 10.0, Glucose 86, Calcium 9.6, Magnesium 1.9, Total Bilirubin 0.6, AST 19, ALT 29, Alkaline Phosphatase 73 , Troponin I < 0.01, Total Protein 7.1, Albumin 4.3, Globulin 2.8, Albumin/ Globulin Ratio 1.5, Cholesterol 265 H, CBC w Diff NO MAN DIFF REQ, RBC 4.73, MCV 87.9, MCH 29.9, RDW 13.2, MPV 8.2, Gran % 73.0, Lymphocytes % 20.7, Monocytes % 5.5, Eosinophils % 0.5, Basophils % 0.3, Absolute Granulocytes 5.6, Absolute Lymphocytes 1.6, Absolute Monocytes 0.4, Absolute Eosinophils 0, Absolute Basophils 0, PUBS MCHC 34.0 Diagnostic Imaging: Viewed by Me: CT Scan. Discussed w/RAD: CT Scan. Radiology Impression: PATIENT: RED CHAVEZ PRESENT AGE: 61 PATIENT ACCOUNT NO: [id number] : 53 LOCATION: [facility] ORDERING PHYSICIAN: LANDON PAUL PA-C SERVICE DATE: 03/11/17 EXAM TYPE: CAT - CT HEAD WO IV CONTRAST EXAMINATION: CT HEAD WITHOUT CONTRAST CLINICAL INFORMATION: Left-sided weakness. Transient ischemic attack. COMPARISON: Head CT from 02/18/2017. MRI of the brain from 05/01/2016. TECHNIQUE: Contiguous axial imaging was performed from the skull base to vertex without intravenous administration of contrast. DLP: 600.71 mGy-cm FINDINGS: No evidence of cerebral edema, intracranial hemorrhage, extra-axial fluid collection, focal mass effect or midline shift. The gurrola-white matter differentiation is maintained. No evidence of an acute major vascular territory infarction. Again noted is mild atrophy of cerebral hemispheres with symmetric prominence of sulci. There is a cavum septum pellucidum et vergae. No hydrocephalus. No acute findings within the posterior fossa. The calvarium is intact and the mastoid air cells and middle ear cavities are clear. There is minimal mucosal thickening of some of the ethmoid air cells and left posterolateral wall of the sphenoid sinus. IMPRESSION: No acute intracranial pathology compared to 02/18/2017. DICTATED BY: ELLEN SOLIS MD DATE/TIME DICTATED:03/11/171627 COMPUTATIONAL GENETICIST:OSMEL DATE/TIME TRANSCRIBED:03/11/171627 CONFIDENTIAL, DO NOT COPY WITHOUT APPROPRIATE AUTHORIZATION. <Electronically signed in Other Vendor System> SIGNED BY: ELLEN SOLIS MD 03/11/17 9962 Initial ED EKG: normal axis, normal intervals, no ST T wave changes, 89 BPM Comments: 03/11/2017 5:48:41 PM: There is still a noticeable left-sided facial droop with obvious asymmetry. This patient will be admitted to the hospital for further evaluation and possible MRI. Discussed this patient with Dr. OROSCO who is in agreement with the plan. 03/11/2017 6:01:17 PM: I spoke to on-call neurologist, Dr. Jurado. She is suggesting telemetry admission and she will consult on this patient. (LANDON PAUL PA-C) Departure Departure Disposition: STILL A PATIENT Condition: Stable Clinical Impression Primary Impression: Stroke Qualifiers: CVA mechanism: unspecified Qualified Code: I63.9 - Cerebral infarction, unspecified Referrals: LISBET LEARY,STACEY Aponte (PCP/Family) Departure Forms: Customer Survey General Discharge Information Prescriptions: Current Visit Scripts Aspirin (Aspirin*) 1 TAB PO DAILY #30 TAB Simvastatin (Zocor*) 1 TAB PO DAILY #30 TAB Admission Note Spoke With: RAFI JOHN MD Documentation of Exam: Documentation of any treatments & extenuating circumstances including Concerns Regarding Discharge (functional status, medication knowledge or non-compliance, living conditions, etc.) that warrant an admission rather than observation: [ This patient is 61-year-old female with past medical history including TIA who presented to the emergency department today for left-sided weakness, paresthesias, and left-sided chest pain. Patient with noticeable facial droop and asymmetry on the left. Left-sided weakness. She should be admitted for stroke alert. This patient should receive MRI, neurology consultation, Trend labs, serial troponins, serial EKGs, pain management, and close monitoring. Premature discharge could prove medically harmful.] (LANDON PAUL PA-C) PA/AIR TABLE OPERATOR Co-Sign Statement Statement: ED Attending supervision documentation- x I saw and evaluated the patient. I have also reviewed all the pertinent lab results and diagnostic results. I agree with the findings and the plan of care as documented in the PA's/AIR TABLE OPERATOR's documentation. [] I have reviewed the ED Record and agree with the PA's/AIR TABLE OPERATOR's documentation. [] Additions or exceptions (if any) to the PAs/AIR TABLE OPERATOR's note and plan are summarized below: [] (ANA LUISA LEARY,LIAN)
--- NOTE | 2017-03-11 15:45 | NUR ---
ASSUMED PRIMaRY CARE. PT TO CT.
--- NOTE | 2017-03-11 16:10 | NUR ---
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
[2017-03-11] MEDS ORDERED: ATIVAN0.5 M1 PO (16:18)
[2017-03-11] MEDS ORDERED: LORAZEPAM0.5 M1 PO (16:18)
[2017-03-11] MEDS ORDERED: ASPIRIN EC325 M2 PO (16:22)
[2017-03-11] MEDS ORDERED: TYLENOL EXTRA500 M2 PO (16:23)
--- NOTE | 2017-03-11 16:37 | CT SCAN REPORT ---
EXAMINATION: CT HEAD WITHOUT CONTRAST CLINICAL INFORMATION: Left-sided weakness. Transient ischemic attack. COMPARISON: Head CT from 02/18/2017. MRI of the brain from 05/01/2016. TECHNIQUE: Contiguous axial imaging was performed from the skull base to vertex without intravenous administration of contrast. DLP: 600.71 mGy-cm FINDINGS: No evidence of cerebral edema, intracranial hemorrhage, extra-axial fluid collection, focal mass effect or midline shift. The gurrola-white matter differentiation is maintained. No evidence of an acute major vascular territory infarction. Again noted is mild atrophy of cerebral hemispheres with symmetric prominence of sulci. There is a cavum septum pellucidum et vergae. No hydrocephalus. No acute findings within the posterior fossa. The calvarium is intact and the mastoid air cells and middle ear cavities are clear. There is minimal mucosal thickening of some of the ethmoid air cells and left posterolateral wall of the sphenoid sinus. IMPRESSION: No acute intracranial pathology compared to 02/18/2017.
--- NOTE | 2017-03-11 17:57 | NUR ---
TO BE ADMITTED PAIN MUCH LESS RESTING WITH EYES CLOSED.
--- NOTE | 2017-03-11 18:23 | NUR ---
CONT TO AWAIT ADMISSION PROCESS WAS DISCUSSED BY PA WITH NEURO
--- NOTE | 2017-03-11 18:24 | NUR ---
AMBULATORY TO BR WITH STEADY GAIT REPORTS PAIN BETTER.
--- NOTE | 2017-03-11 18:26 | History & Physical ---
[facility] [place] 1825: General Information and HPI MD Statement: I have seen and personally examined RED GAITAN and documented this H&P. The patient is a 61 year old F who presented with a patient stated chief complaint of chest pain and neurological symptoms. Source of Information: patient, old records Exam Limitations: no limitations History of Present Illness: Ms. Gaitan is a 61 y/o F with PMHx of generalized anxiety disorder, migraine and TIA who presents with intermittent episodes of left-sided chest pain radiating to her arm and under her breast, nausea, diaphoresis and tingling on the left side of her face and left hand x 2 days. Initial episode occurred around 4 AM on the day prior to current presentation and since then patient has had multiple episodes of involving some of these symptoms. She also endorses associated nausea, blurry vision and lightheadedness during these episodes. Patient has felt weak and fatigued since the onset of symptoms. She reports that she was diagnosed with a TIA at [facility] approximately four years ago and discharged on aspirin. Her presenting symptoms at that time were speech difficulty and gait instability which she currently denies. In August 2016, she was seen here at [place] for TIA/CVA rule-out in the setting of vertigo, headache and facial paresthesias where her current presentation was attributed to anxiety and migraines with acute neurologic event felt to be unlikely by neurology. Patient has significant anxiety as baseline and goes to group psychotherapy twice per week. Of note she has been increasingly anxious and stressed recently which she attributes to "being sick all the time" and her children underestimating the magnitude of her sickness. 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 Allergies/Medications Allergies: Coded Allergies: hydromorphone (Severe, THROAT FEELS LIKE IT'S CLOSING/RASH 12/06/16) dexlansoprazole (RASH 12/06/16) promethazine (From PHENERGAN) (ANXIETY 03/11/17) NSAIDS (Non-Steroidal Anti-Inflamma (ABDOMINAL PAIN 12/06/16) Home Med list Acetaminophen (Tylenol Extra Strength) 500 MG TABLET 1 TAB PO PRN PAIN ( Reported) Aspirin (Aspirin*) 81 MG TAB.CHEW 1 TAB PO DAILY STROKE PREVENTION Butalb/Acetaminophen/Caffeine (Fioricet 50-300-40 MG Capsule) 50 MG-300 MG-40 MG CAPSULE 1-2 CAP PO Q6PRN PRN headache (Reported) Lorazepam 0.5 MG TABLET 0.5 TAB PO DAILY ANXIETY (Reported) Lorazepam (Ativan) 0.5 MG TABLET 1 TAB PO QPM ANXIETY (Reported) Meclizine HCl 12.5 MG TABLET 1 TAB PO PRN DIZZINESS (Reported) Ondansetron (Zofran Odt) 4 MG TAB.RAPDIS 1 TAB SL TID PRN NAUSEA/VOMITING ( Reported) Simvastatin (Zocor*) 20 MG TABLET 1 TAB PO DAILY HIGH CHOLESTROL Past History Travel History Traveled to [place] past 21 day No Medical History Neurological: migraine EENT: allergies Cardiovascular: arrhythmia Respiratory: COPD Gastrointestinal: H PYLORI Hepatic: NONE Renal: NONE Musculoskeletal: chronic back pain, osteoarthritis Psychiatric: anxiety Endocrine: hypothyroidism Blood Disorders: NONE Cancer(s): NONE PHARMACY MESSENGER/Reproductive: NONE History of MRSA: No History of VRE: No History of CDIFF: No Surgical History Surgical History: non-contributory Past Family/Social History Family History Relations & Conditions if any MOTHER FH: diabetes mellitus FH: HTN (hypertension) FATHER, , Age 40-50; Cause: Rheumatic heart disease. FH: rheumatic heart disease Psychosocial History Where do you live? Home Who Do You Live With? son and his girlfriend Services at Home: None Primary Language: Georgian Smoking Status: Former Smoker (Quit 8 Yrs Ago,Smoked ~40 Yrs) ETOH Use: denies use Illicit Drug Use: denies illicit drug use Functional Ability ADLs Independent: dressing, eating, toileting, bathing. Ambulation: independent IADLs Independent: shopping, housework, finances, food prep, telephone, transportation , medication admin. 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 Denies: chills, fever. EENTM: Reports: blurred vision, hearing changes. Cardiovascular: Reports: chest pain, palpitations (chronic). Denies: peripheral edema. Respiratory: Denies: short of breath. GI: Reports: nausea. Denies: abdominal pain, constipation, diarrhea, vomiting. Genitourinary: Reports: no symptoms. Musculoskeletal: Reports: back pain (chronic), neck pain (chronic). Skin: Reports: see HPI. Neurological/Psychological: Reports: anxiety, headache, tingling. Hematologic/Endocrine: Reports: no symptoms. Immunologic/Allergic: Reports: no symptoms. All Other Systems: Reviewed and Negative Exam & Diagnostic Data Last 24 Hrs of Vital Signs/I&O Vital Signs Date Time Temp Pulse Resp B/P Pulse O2 O2 Flow FiO2 Ox Delivery Rate 03/11 1929 6.1 71 18 162/76 96 Room Air 03/11 1727 96.0 80 18 135/60 100 Room Air 03/11 1510 97.0 67 18 161/86 98 Room Air 03/11 1412 98 Room Air Room Air 03/11 1234 98.3 82 20 174/73 99 Room Air Intake & Output 03/11 1600 03/11 0800 03/11 0000 Intake Total Output Total Balance Patient 64.41 kg Weight Physical Exam General Appearance Alert, Oriented X3, No Acute Distress HEENT Atraumatic, Mucous Membr. moist/pink Neck Supple Cardiovascular Regular Rate, Normal S1, Normal S2, Systolic Ejection Murmur, Chest Pain Reproducible on Palpation Only Under Left Breast Abdomen Soft, No Tenderness, Positive Bowel Sounds Neurological Normal Speech, Sensation Intact, Reflexes 2+, Cranial Nerves 3-12 NL Except Mild Facial Droop, RUE and RLE with 5/5 Strength, LUE and LLE with 3/5 Strength, No Dysmetria on [id number]-Rgxd Testing Extremities No Clubbing, No Cyanosis, No Edema Last 24 Hrs of Labs/Cody: Laboratory Tests 03/11/17 1405: Anion Gap 10, Estimated GFR > 60, BUN/Creatinine Ratio 10.0, Glucose 86, Calcium 9.6, Magnesium 1.9, Total Bilirubin 0.6, AST 19, ALT 29, Alkaline Phosphatase 73 , Troponin I < 0.01, Total Protein 7.1, Albumin 4.3, Globulin 2.8, Albumin/ Globulin Ratio 1.5, Cholesterol 265 H, CBC w Diff NO MAN DIFF REQ, RBC 4.73, MCV 87.9, MCH 29.9, RDW 13.2, MPV 8.2, Gran % 73.0, Lymphocytes % 20.7, Monocytes % 5.5, Eosinophils % 0.5, Basophils % 0.3, Absolute Granulocytes 5.6, Absolute Lymphocytes 1.6, Absolute Monocytes 0.4, Absolute Eosinophils 0, Absolute Basophils 0, PUBS MCHC 34.0 Diagnostic Data EKG Results Normal sinus rhythm HR 89 QTc 439 CXR Results Unremarkable chest exam. Other Results CT HEAD: No acute intracranial pathology compared to 02/18/2017. Assessment/Plan Assessment: 61 y/o F with PMHx of generalized anxiety disorder, migraine and TIA who presents with left-sided chest pain and neurological symptoms including left- sided weakness and paresthesias. #Neurological symptoms: Transient episodes of tingling of left hand and left- sided face, headaches and left-sided weakness on exam associated with a constellation of other symptoms including blurry vision, lightheadedness, nausea and diaphoresis. LUE and LLE weakness on exam appears to be variable and inconsistent. Although an acute neurological event such as CVA/TIA is on the differential, it is unlikely as current presentation would be atypical. CT Head negative for acute infarct. Similar presentation in August 2016 with negative work-up for CVA/TIA, felt to be secondary to anxiety, depression and chronic headache rather than neurologic. Current symptoms are most likely secondary to anxiety but could also represent complicated migraine. * Admit to telemetry for continuous cardiac monitoring to rule out arrhythmia. * Neurology consulted. Appreciate their recs. * Administer 325 mg of PO aspirin. * Fioricet 1 tab PO Q6H PRN for headaches. * Continue prior to admission Ativan 0.25 mg PO daily and 0.5 mg PO QPM for anxiety. * Neuro-checks Q6H. * MRI Brain W/WO JAVIER to evaluate for acute infarct. * If MRI negative, consider checking ECHO and carotid doppler US to rule out TIA. #Chest pain: Left-sided chest pain with radiation to left arm and under left breast. EKG with no ST-T wave abnormalities. Troponin negative. * Serial EKGs and troponin to rule out ACS. #Hypothyroidism: Patient has a history of hypothyroidism but is not on any medications secondary to adverse reactions. Most recent TSH was elevated (7.1) in October 2016. * Check TSH. Diet: Heart Healthy DVT PPx: ALPs and Lovenox CODE: FULL As Ranked By This Provider Problem List: 1. Generalized anxiety disorder 2. Chest pain 3. Left hand paresthesia 4. Facial paresthesia 5. Hypothyroidism Core Measures/Miscellaneous Acute Coronary Syndrome ACS Diagnosis: No Cerebrovascular Accident CVA/TIA Diagnosis: No Congestive Heart Failure CHF Diagnosis: No Venous Thromboembolism VTE Risk Factors: Acute medical illness, Age > 40 No [facility] V[facility] prophylaxis d/t: No contraindications No VTE Pharm Prophylaxis d/t: No contraindications VTE Diagnosis: No VTE Type: NONE VTE Confirmed by (Test): NONE Severe Sepsis Severe Sepsis Present: No Septic Shock Septic Shock Present: No Miscellaneous Documentation Attending Case Discussed With: FILOMENA HOYT MD Primary Care Physician: STACEY FRAUSTO MD Patient sees these Specialists Metal Flow Coordinator Bari Eng MD Neurologist Radames Koroma MD Level of Patient Care: Telemetry SUNDAY PERDOMO MD 03/11/172040: Resident Review Statement Resident Statement: examined this patient, discussed with commander internal affairs, agreed with commander internal affairs Other Findings: 61 YO F with PMH of generalized anxiety disorder, migraine and TIA, COPD, chronic pain who presents with neurological symptoms and left-sided chest pain that has been present for the past 24 hrs. Reported facial droop which has since resolved. Transient episodes of tingling of left hand and left-sided face, headaches and LUE weakness on exam associated with lightheadedness, nausea and diaphoresis. Similar presentation in August 2016 with work-up negative for TIA. Symptoms are most likely secondary to anxiety but could also represent complicated migraine. continuous cardiac monitoring to rule out arrhythmia. Administer 325 mg of PO aspirin Head CT w/o acute changes, Will get MRI head in am Asprin 325mg tonight Lipid levels checked last admission, Chol 265, LDL 146, HDL 65 continue home medication, Fioricet and Ativan Neurology evaluation continue neurochecks Q 4 hrs passed bedside swallow evaluation, ordered heart healthy diet Extreme anxiety, seeing pcp on monthly basis because of ongoing anxiety, would like to stop ativan medication Feels that her children dont believe her symptoms are real, tearful during interview- psychiatry consultation Left-sided chest pain with radiation to left arm and under left breast, reports tenderness on palpation, ? musculoskeletal component Will get Serial EKGs and troponin to rule out ACS. history of hypothyroidism but is not on any medications secondary to adverse reactions, apparently allergic to thyroid medications, pcp made decision to hold off on treatment until TSH is >10. Most recent TSH was elevated (7.1) in October 2016. Will repeat TSH level Heart Healthy DVT ppx Lovenox FILOMENA HOYT 04/18/17 2206: Attending MD Review Statement Attending Statement Attending MD Statement: examined this patient, discuss w/resident/PA/AUDITING CODER, agreed w/resident/PA/AUDITING CODER, reviewed EMR data (avail), reviewed images, amended to note Attending Assessment/Plan: CC : tingling numbness of left side of face, left sided chest pain PMHx: Migraine, positional vertigo, hypothyroidism currently not under treatment (due to "side effects") patient came to ER with multiple complaints. Symptoms started with severe headache 3 weeks back, almost daily, associated with photophobia but no phonophobia, sometimes on the back of head, sometimes on the left side of forehead, which responded to Fiorinal only. The last headache episode was Friday, Friday morning at 4 am, patient woke up with tingling numbness left side of the face, left upper extremity especially fingers. She denies, blurred vision, balance issues or speech abnormality. Episode lasted for 5 hours, then resolved, patient was feeling tired and fatigued and she slept that day, next day that is on the day of admission patient went to PCP, from where she was sent to ER for the symptoms. Meanwhile patient also complaints of some left-sided chest pain, on and off, behind her left breast, going to her left arm, sharp, associated with some nausea and diaphoresis. Patient gets left eyelid drooping with headache, sometimes her headache are with symptoms like ringing in ears before actual headache starts. Patient had tried different maintenance medications for migraine like propranolol and Topamax, including Botox which did not help and gets side effects. She gets severe side effects with Imitrex. Vitals : Unremarkable Exam: A O 3, cooperative, no acute distress, neck supple, no JVD, no lymphadenopathy, mucosa moist, no dependent edema, no obvious skin rashes or inflammation CVS: S1-S2, RRR. RS: Clear to auscultate bilaterally. Abdomen: Soft , NT, ND, bowel sounds present. Neurological examination: Left eyelid droop ( which is similar from her previous exam), subjective weakness left upper extremity, speech normal, reflexes normal, sensation intact, cerebellar reflexes normal CVC, BMP, LFT, troponin within normal range CXR, CT head : Within normal limits A and P #1 Left facial tingling numbness: Patient came with similar complaints in the past, MRI done at that time was unremarkable, patient states that she has history of TIA and was suggested to take aspirin. On examination patient has subjective weakness which is variable, left minimum ptosis which is chronic for her when she gets headaches. In the setting it appears to be complicated migraine. Patient will need MRI to rule out any cerebrovascular or demyelinating abnormality. Consult neurology in a.m. Continue 325 by mouth daily, atorvastatin 20, neurochecks every 6 hour, if MRI is of normal then she will need further workup with carotid Doppler and 2-D echocardiogram, meanwhile telemetry monitoring for any cardiac arrhythmias. #2 patient also complains of some chest pain on left side, going to her left arm , continue aspirin, check serial EKGs and troponin, if any abnormality consult cardiology in a.m. #3 patient has severe anxiety and stressors at home, sees a therapist outpatient consider psychiatry consult, patient having recurrent similar symptoms, continue home doses of benzodiazepine #4 hypothyroidism: Patient currently not on treatment, TSH elevated in October, recheck TSH.
--- NOTE | 2017-03-11 18:41 | NUR ---
HOUSESTAFF AT BEDSIDE. STEADY GAIT TO AND FROM BR.
--- NOTE | 2017-03-11 18:48 | NUR ---
PT HAS BED ASSIGNMENT 174-1. RN NOTIFIED.
--- NOTE | 2017-03-11 19:35 | NUR ---
REPORT GIVEN TO
--- NOTE | 2017-03-11 19:36 | NUR ---
DISTRIBUTION NOTIFIED.
[2017-03-11 21:03] VITALS: BP 166/98
--- NOTE | 2017-03-11 22:09 | Admission Certification ---
Admission Certification Certification Statement - As attending physician, I certify that at the time of - admission, based on clinical presentation, severity of - symptoms, need for further diagnostic testing and - therapeutic interventions, and risk of adverse outcomes - without in-hospital treatment, in my clinical assessment, - this patient requires an acute hospital stay for a minimum - of two nights or longer. I have also considered psychsocial - factors such as support system, advanced age, financial - issues, cognitive issues, and failed out-patient treatments, - past re-admission history, safety of patient, and lack of - compliance as applicable. Specific rationale supporting this admission is: complicated migraine, chest pain r/o ACS
[2017-03-12 00:04] VITALS: BP 130/60
--- NOTE | 2017-03-12 07:21 | PN- Housestaff ---
Subjective Follow-up For: Neurological symptoms Chest pain Tele-Events Since Last Visit: Normal sinus rhythm HR 64-80 PACs Subjective: No acute events overnight. Patient seen and examined this morning. She continues to complain of headache, left face tingling and chest pain. Review of Systems Constitutional: Reports: see HPI. Objective Last 24 Hrs of Vital Signs/I&O Vital Signs Date Time Temp Pulse Resp B/P B/P Pulse O2 O2 Flow FiO2 Mean Ox Delivery Rate 03/12 0836 95 Room Air 03/12 0806 97.1 77 18 120/82 95 Room Air Physical Exam General Appearance: Alert, Oriented X3, No Acute Distress HEENT: Atraumatic, Mucous Membr. moist/pink Neck: Supple Cardiovascular: Regular Rate, Normal S1, Normal S2, Systolic Ejection Murmur Lungs: Clear to Auscultation Abdomen: Soft, No Tenderness, Positive Bowel Sounds Extremities: No Clubbing, No Cyanosis, No Edema Current Medications: Current Medications Sig/David Start time Last Medication Dose Route Stop Time Status Admin Acetaminophen 650 MG Q6P PRN 03/11 1845 DCD 03/11 PO 2244 Acetaminophen/ 1 TAB Q6-PRN PRN 03/11 2030 DCD 03/12 Butalbital/Caffeine PO 1521 Aspirin 81 MG DAILY 03/12 1352 DCD 03/12 PO 1520 Enoxaparin Sodium 40 MG DAILY 03/12 1000 DCD 03/12 SC 0947 Lorazepam 0.5 MG QPM 03/11 2200 DCD 03/11 PO 03/18 2159 2239 Lorazepam 0.25 MG DAILY 03/11 2031 DCD 03/12 PO 03/18 2030 0947 Orders Miscellaneous Findings: MRI HEAD W/O JAVIER: Limited study with motion artifacts. No acute infarct. Mild chronic white matter microangiopathy. Assessment/Plan Assessment: 61 y/o F with PMHx of generalized anxiety disorder, migraine and remote history of TIA who presents with left-sided chest pain and neurological symptoms including headache, left-sided weakness and paresthesias. #Neurological symptoms: MRI with no acute infarct. Patient seen by neurology who feel that current presentation is likely secondary to complicated migraine. Of note, cholesterol was elevated at 265. * Discharge home today with instructions to follow up with her neurologist. * Aspirin 81 mg PO daily and Zocor 20 mg PO daily added to discharge medications. #Chest pain: ACS ruled out with serial EKGs and troponins. * NTD. Diet: Heart Healthy DVT PPx: Lovenox and ALPs CODE: FULL Problem List: 1. Facial paresthesia 2. Chest pain 3. Generalized anxiety disorder 4. Migraine headache 5. Hypothyroidism Pain Ratin Pain Location: N/A Pain Goal: Remain pain free Pain Plan: Tylenol 650 mg PO Q6H Tomorrow's Labs & Rationales: None Discharge Plan Discharge Disposition: home Stable for Discharge? Yes Anticipated Discharge (Day): today
[2017-03-12 08:06] VITALS: BP 120/82
--- NOTE | 2017-03-12 09:59 | Cons- Neurology ---
General Information and HPI Consulting Request Date of Consult: 03/12/17 Requested By: JAYNA POWERS MD Reason for Consult: possible TIA w/ L face/arm tingling Source of Information: patient Exam Limitations: no limitations History of Present Illness: 61-year-old right-handed woman with a long-standing history of migraine headaches and a remote history of a TIA (stopped aspirin sometime ago for unclear reasons) states she experienced left frontal head pressure on 03-09 as well as left-sided chest discomfort and left face and arm tingling. Symptoms waxed and waned and she did not seek immediate medical attention. She presented to the [facility] on 03-11 due to persistent symptoms. Typical migraines are occipital and pounding in quality, relieved with when necessary Fioricet which she states she takes 4-5 times per month on average. In between headache episodes she has other symptoms which she considers to be migrainous despite lack of headache. The symptoms include generalized malaise, a "foggy feeling" in her head, dizziness, and nausea. She states her current neurologist is Dr. Radames Koroma at [facility]. She states she has tried every prophylactic treatment in existence, including vitamins, mineral supplements, beta blockers, tricyclic antidepressants, anticonvulsants and Botox injections, all of which have resulted in intolerable side effects and have not been efficacious. Allergies/Medications Allergies: Coded Allergies: hydromorphone (Severe, THROAT FEELS LIKE IT'S CLOSING/RASH 12/06/16) dexlansoprazole (RASH 12/06/16) promethazine (From PHENERGAN) (ANXIETY 03/11/17) NSAIDS (Non-Steroidal Anti-Inflamma (ABDOMINAL PAIN 12/06/16) Home Med List: Acetaminophen (Tylenol Extra Strength) 500 MG TABLET 1 TAB PO PRN PAIN ( Reported) Aspirin (Ecotrin*) 325 MG TABLET. 1 TAB PO PRN PAIN (Reported) Butalb/Acetaminophen/Caffeine (Fioricet 50-300-40 MG Capsule) 50 MG-300 MG-40 MG CAPSULE 1-2 CAP PO Q6PRN PRN headache (Reported) Lorazepam 0.5 MG TABLET 0.5 TAB PO DAILY ANXIETY (Reported) Lorazepam (Ativan) 0.5 MG TABLET 1 TAB PO QPM ANXIETY (Reported) Meclizine HCl 12.5 MG TABLET 1 TAB PO PRN DIZZINESS (Reported) Ondansetron (Zofran Odt) 4 MG TAB.RAPDIS 1 TAB SL TID PRN NAUSEA/VOMITING ( Reported) Current Medications: Current Medications Sig/David Start time Last Medication Dose Route Stop Time Status Admin Acetaminophen 650 MG Q6P PRN 03/11 1845 AC 03/11 PO 2244 Acetaminophen 0 .STK-MED ONE 03/11 1633 DC IV Acetaminophen 1,000 MG ONCE ONE 03/11 1530 DC 03/11 N/A 1 UNIT IV 03/11 1544 1634 Acetaminophen/ 1 TAB Q6-PRN PRN 03/11 2030 AC Butalbital/Caffeine PO Aspirin 325 MG ONCE ONE 03/11 2045 DC 03/11 PO 03/11 204 2239 Enoxaparin Sodium 40 MG DAILY 03/12 1000 AC 03/12 SC 0947 Lorazepam 0.5 MG QPM 03/11 2200 AC 03/11 PO 03/18 215 2239 Lorazepam 0.25 MG DAILY 03/11 203 AC 03/12 PO 03/18 2030 0947 Lorazepam 0.5 MG ONE ONE 03/11 1645 DC 03/11 PO 03/11 1646 1700 Lorazepam 0 .STK-MED ONE 03/11 1640 DC PO Sodium Chloride 1,000 ML BOLUS ONE 03/11 1530 DC 03/11 IV 03/11 1629 1634 Review of Systems Review of Systems: REVIEW OF SYSTEMS: (-) = negative / normal blank = not discussed Neurologic: see HPI Eyes: 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 and 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 ENT: (-) Constitutional: see HPI CV: (-) Respiratory: (-) /Renal: (-) Musculoskeletal: (-) Skin: (-) Psychiatric: Anxiety, on prn benzodiazepines Heme: (-) GI: Dyspepsia from many meds and vitamins Allergy/Immune: (-) Endocrine: States she has had a mildly elevated TSH for years and has been intolerant of trials of levothyroxin due to symptoms of jitteriness Other: (-) Past History Travel History Traveled to [place] past 21 day No Medical History Blood Transfusion Hx: No Neurological: migraine, TIA, vertigo EENT: allergies Cardiovascular: arrhythmia Respiratory: COPD Gastrointestinal: H PYLORI Hepatic: NONE Renal: NONE Musculoskeletal: chronic back pain, osteoarthritis, CHRONIC NECK PAIN Psychiatric: anxiety, depression Endocrine: hypothyroidism Blood Disorders: NONE Cancer(s): NONE 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 FH: rheumatic heart disease Psychosocial History Where Do You Live? Home Who Do You Live With? son and his girlfriend Services at Home: None Primary Language: Tristanian Smoking Status: Former Smoker (Quit 8 Yrs Ago,Smoked ~40 Yrs) ETOH Use: denies use Illicit Drug Use: denies illicit drug use Functional Ability ADLs Independent: dressing, eating, toileting, bathing. Ambulation: independent IADLs Independent: shopping, housework, finances, food prep, telephone, transportation , medication admin. Employment History Employment: Unemployed (Former [employer] - [employer]) Exam & Diagnostic Data Vital Signs and I&O Vital Signs Date Time Temp Pulse Resp B/P B/P Pulse O2 O2 Flow FiO2 Mean Ox Delivery Rate 03/12 0836 95 Room Air 03/12 0806 97.1 77 18 120/82 95 Room Air 03/12 0004 97.9 73 18 130/60 97 Room Air 03/11 2103 98.2 84 20 166/98 99 Room Air 03/11 1929 6.1 71 18 162/76 96 Room Air 03/11 1727 96.0 80 18 135/60 100 Room Air 03/11 1510 97.0 67 18 161/86 98 Room Air 03/11 1412 98 Room Air Room Air 03/11 1234 98.3 82 20 174/73 99 Room Air Intake & Output 03/12 1600 03/12 0800 03/12 0000 Intake Total 120 1600 Output Total Balance 120 1600 Intake, IV 1000 Intake, Oral 120 600 Patient 142 lb Weight Physical Exam: PHYSICAL EXAMINATION: nl = normal NT or blank = not tested GENERAL Appearance: nl Head: nl Eyes: nl ENT: nl Neck: nl Carotids: nl Lungs: nl Heart: nl Extremities: nl Spine: nl NEUROLOGIC MENTAL STATUS Level of consciousness: nl Orientation: nl Attention / Concentration: nl Memory: nl Fund of Knowledge: nl Speech / Language: nl NEUROLOGIC CRANIAL NERVES I: Olfaction: NT II: Optic nerves: nl Visual cunningham: nl III: Pupils: nl Levator palpebrae: ~1mm L ptosis III, IV, : Ocular alignment: nl Extraocular motility: nl Pursuits/ saccades: nl V: Facial sensation: nl Masseter/Pterygoids: nl VII: Facial Motor: nl VIII: Hearing (finger rub): nl IX, X: Uvula and palate: nl XI: SCM, Upper trap.: nl XII: Tongue: nl MOTOR / NEUROMUSCULAR Bulk: nl Tone: nl Strength: nl aside from mild giveaway weakness of the hand intrinsic muscles on the left Negative satellite sign Negative drift Rapid alternating movements: nl Fine motor movements: nl Abnormal / involuntary movements: none CEREBELLAR / COORDINATION: intact SENSATION: intact DTR's Symmetrically trace to 1+ in the upper extremities Knee jerks absent right trace left Ankle jerks trace Plantars flexor on the right, and equivocal on the left BROWN'S: (-) GAIT: nl Last 48 Hours of Lab Results: Laboratory Tests 03/12 03/11 03/11 0330 2125 1405 Chemistry Sodium (137 - 145 mmol/L) 140 Potassium (3.5 - 5.1 mmol/L) 3.8 Chloride (98 - 107 mmol/L) 104 Carbon Dioxide (22 - 30 mmol/L) 26 Anion Gap (5 - 16) 10 BUN (7 - 17 mg/dL) 6 L Creatinine (0.5 - 1.0 mg/dL) 0.6 Estimated GFR (>60 ml/min) > 60 BUN/Creatinine Ratio (7 - 25 %) 10.0 Glucose (65 - 99 mg/dL) 86 Calcium (8.4 - 10.2 mg/dL) 9.6 Magnesium (1.6 - 2.3 mg/dL) 1.9 Total Bilirubin (0.2 - 1.3 mg/dL) 0.6 AST (14 - 36 U/L) 19 ALT (9 - 52 U/L) 29 Alkaline Phosphatase (<127 U/L) 73 Troponin I (< 0.11 ng/ml) < 0.01 < 0.01 < 0.01 Total Protein (6.3 - 8.2 g/dL) 7.1 Albumin (3.5 - 5.0 g/dL) 4.3 Globulin (1.9 - 4.2 gm/dL) 2.8 Albumin/Globulin Ratio (1.1 - 2.2 %) 1.5 Cholesterol (<200 MG/DL) 265 H TSH (0.270 - 4.200 uIU/mL) 11.900 H Hematology CBC w Diff NO MAN DIFF REQ WBC (4.8 - 10.8 /CUMM) 7.7 RBC (4.20 - 5.40 /CUMM) 4.73 Hgb (12.0 - 16.0 G/DL) 14.1 Hct (37 - 47 %) 41.5 MCV (81.0 - 99.0 FL) 87.9 MCH (27.0 - 31.0 PG) 29.9 RDW (11.5 - 14.5 %) 13.2 Plt Count (130 - 400 /CUMM) 241 MPV (7.4 - 10.4 FL) 8.2 Gran % (42.2 - 75.2 %) 73.0 Lymphocytes % (20.5 - 51.1 %) 20.7 Monocytes % (1.7 - 9.3 %) 5.5 Eosinophils % (0 - 5 %) 0.5 Basophils % (0.0 - 2.0 %) 0.3 Absolute Granulocytes (1.4 - 6.5 /CUMM) 5.6 Absolute Lymphocytes (1.2 - 3.4 /CUMM) 1.6 Absolute Monocytes (0.10 - 0.60 /CUMM) 0.4 Absolute Eosinophils (0.0 - 0.7 /CUMM) 0 Absolute Basophils (0.0 - 0.2 /CUMM) 0 PUBS MCHC (33.0 - 37.0 G/DL) 34.0 Imaging/Other Studies: Brain MRI today: Normal aside from mild microvascular ischemic changes Head CT 03-11-17: COMPARISON: Head CT from 02/18/2017. MRI of the brain from 05/01/2016. TECHNIQUE: Contiguous axial imaging was performed from the skull base to vertex without intravenous administration of contrast. DLP: 600.71 mGy-cm FINDINGS: No evidence of cerebral edema, intracranial hemorrhage, extra-axial fluid collection, focal mass effect or midline shift. The gurrola-white matter differentiation is maintained. No evidence of an acute major vascular territory infarction. Again noted is mild atrophy of cerebral hemispheres with symmetric prominence of sulci. There is a cavum septum pellucidum et vergae. No hydrocephalus. No acute findings within the posterior fossa. The calvarium is intact and the mastoid air cells and middle ear cavities are clear. There is minimal mucosal thickening of some of the ethmoid air cells and left posterolateral wall of the sphenoid sinus. IMPRESSION: No acute intracranial pathology compared to 02/18/2017. DICTATED BY: ELLEN SOLIS MD DATE/TIME DICTATED:03/11/178 Assessment/Plan Assessment: Likely complicated migraine, less likely TIA Family history of migraine headaches and stroke in her mother, who is currently well and in her 90s Remote history of TIA, off aspirin prior to admission Hypercholesterolemia Recommendations: Aspirin 81 mg daily Statin Continue when necessary Fioricet for migraine headaches Follow-up with her neurologist as an outpatient Consult Acknowledgment - Thank you for your consult request.
--- NOTE | 2017-03-12 11:13 | MRI REPORT ---
EXAMINATION: MR BRAIN WITHOUT CONTRAST CLINICAL INFORMATION: Question TIA versus stroke. Left facial paresthesias and left-sided headaches. COMPARISON: Brain MRI from 09/11/2016. TECHNIQUE: Multiplanar, multisequence imaging of the brain was performed without contrast. The study is significantly limited due to motion artifacts. FINDINGS: No diffusion abnormalities are identified to suggest an acute infarct. The ventricles are normal in size. No mass effect or midline shift is seen. Mild chronic white matter microangiopathic changes are again noted. No extra-axial fluid collections are seen. The brainstem and cerebellum are normal. The gradient refocused acquisition is normal. The craniovertebral junction, marrow signal, and midline structures are normal. The major intracranial flow voids at the level of the [place] are preserved. The dural venous sinus flow voids are maintained. The mastoid air cells and paranasal sinuses are well aerated. IMPRESSION: Limited study with motion artifacts. No acute infarct. Mild chronic white matter microangiopathy.
--- NOTE | 2017-03-12 13:58 | Patient Discharge Instructions ---
Discharge Instructions General Discharge Information You were seen/treated for: Migraine headache Chest pain Watch for these problems: Headache that is different or much worse than usual Headache accompanied by fever, stiff neck, vision changes, confusion, dizziness, difficulty speaking, weakness or numbness Seizure or fainting Special Instructions: Please follow up with your primary care physician Dr. Carmelo Whitaker within one week of discharge. Please follow up with your neurologist Dr. Radames Koroma for migraine headaches within two weeks of discharge. Please take all medications as prescribed. Diet Recommended Diet: Heart Healthy Activity Full Activity/No Limits: Yes Acute Coronary Syndrome Inclusion Criteria At DC or during hospital stay patient has or had the following: ACS DIAGNOSIS No Discharge Core Measures Meds if any: Prescribed or Continued at Discharge Meds if any: NOT Prescribed or Continued at Discharge Congestive Heart Failure Inclusion Criteria At DC or during hospital stay patient has or had the following: CHF DIAGNOSIS No Discharge Core Measures Meds if any: Prescribed or Continued at Discharge Meds if any: NOT Prescribed or Continued at Discharge Cerebrovascular accident Inclusion Criteria At DC or during hospital stay patient has or had the following: CVA/TIA Diagnosis No Discharge Core Measures Meds if any: Prescribed or Continued at Discharge Meds if any: NOT Prescribed or Continued at Discharge Venous thromboembolism Inclusion Criteria VTE Diagnosis No VTE Type NONE VTE Confirmed by (Test) NONE Discharge Core Measures - Per Current guidelines, there needs to be overlap - treatment for the first 5 days of Warfarin therapy. - If discharged on Warfarin prior to 5 days of - overlap therapy, the patient will need to be - assessed for post discharge needs including - *Post discharge parental anticoagulation - *Warfarin and/or parental anticoagulation education - *Follow up date to check INR post discharge At least 5 days overlap therapy as Inpatient No Meds if any: Prescribed or Continued at Discharge Note: Overlap Therapy is Warfarin and Anticoagulant Meds if any: NOT Prescribed or Continued at Discharge
[2017-03-12] MEDS ORDERED: ASPIRIN81 M4 PO (14:01)
[2017-03-12] MEDS ORDERED: ZOCOR20 M1 PO (14:01)
--- NOTE | 2017-03-12 15:09 | Discharge Summary ---
Visit Information Visit Dates Admission Date: 03/11/17 Discharge Date: 03/12/17 Hospital Course Course Attending Physician: GIO LEARY,JAYNA Villarreal Primary Care Physician: LISBET LEARY,STACEY Aponte Other Care Providers: Neurologist Radames Koroma MD Consulting Request: Consulting Specialty: Neurology Consulting Physician: Janelle Jurado MD Reason for Consult: possible TIA w/ L face/arm tingling Hospital Course: Ms. Gaitan is a 61 y/o F with PMHx of migraine headaches, remote history of TIA and generalized anxiety disorder who presented with waxing and waning left-sided frontal headache, left-sided chest pain with radiation to her left arm and under her left breast and left face and arm tingling x 2 days associated with nausea, diaphoresis, blurry vision, dizziness and generalized malaise. Of note, patient had been admitted to [facility] in August 2016 with similar symptoms, which was felt to represent migraine headache, with the possibility of CVA or TIA deemed to be very low in the absence of any focal deficits on exam and unrevealing CT and MRI Head. On current presentation, vitals were stable. Neurological exam was unremarkable except for left eyelid ptosis also present on previous admission and mild giveaway weakness of the left hand. CBC, BMP and LFTs were within normal limits. CXR was unremarkable. CT Head revealed no acute infarct. Patient was admitted to telemetry for rule-out TIA. Below are the issues that were addressed during present admission: #Left-sided headache and neurological symptoms: MRI Head W/O JAVIER was performed which showed no acute infarct and was remarkable for only mild chronic white matter angiopathy. Patient was seen by neurology who felt that current presentation was most likely secondary to complicated migraine and unlikely to represent a cerebrovascular event including TIA. Of note, patient had been following neurologist Dr. Radames Koroma at [facility] for migraine headaches and had tried every prophylactic treatment including vitamins, mineral supplements, beta blockers, tricyclic antidepressants, anticonvulsants and Botox injections, all of which either had intolerable side effects or were not efficacious. Lipid panel was checked and cholesterol was found to be elevated at 265. Patient was started on aspirin and statin. * Patient was instructed to follow up with her neurologist Dr. Radames Koroma for further management of migraine headaches on discharge. * Aspirin 81 mg PO daily and simvastatin 20 mg PO daily were added to discharge medications. * Patient will continue Fioricet PRN for migraine headaches. #Chest pain: Acute coronary syndrome was ruled out with serial EKGs and troponins. Pain was most likely secondary to anxiety, with patient endorsing increasing amounts of stress and anxiety leading to current admission. #Hypothyroidism: Patient had a history of hypothyroidism but was not on any medications secondary to adverse reactions. Her TSH had been 7.1 in October 2016. TSH was repeated on current admission and came back at 11.9. * Patient was instructed to follow up with her primary care physician regarding elevated TSH. Allergies: Coded Allergies: hydromorphone (Severe, THROAT FEELS LIKE IT'S CLOSING/RASH 12/06/16) dexlansoprazole (RASH 12/06/16) promethazine (From PHENERGAN) (ANXIETY 03/11/17) NSAIDS (Non-Steroidal Anti-Inflamma (ABDOMINAL PAIN 12/06/16) Disposition Summary Disposition Principal Diagnosis: Migraine headache Additional Diagnosis: Chest pain Hypothyroidism Discharge Disposition: home or self care Discharge Instructions General Discharge Information Code Status: Full Code Patient's Diet: Heart Healthy Patient's Activity: Full Activity/No Limits Follow-Up Instructions/Appts: Please follow up with your primary care physician Dr. Stacey Whitaker within one week of discharge. Please follow up with your neurologist Dr. Radames Koroma for migraine headaches within two weeks of discharge. Please take all medications as prescribed. Medications at Discharge Discharge Medications: Stop taking the following medications: Aspirin (Ecotrin*) 325 MG TABLET.DR ORAL as needed for PAIN Continue taking these medications: Meclizine HCl (Meclizine HCl) 12.5 MG TABLET 1 Tablet ORAL as needed for DIZZINESS Qty = 90 Comments: NOT GIVEN IN HOSPITAL Butalb/Acetaminophen/Caffeine (Fioricet 50-300-40 MG Capsule) 50 MG-300 MG-40 MG CAPSULE 1-2 Capsule ORAL EVERY 6 HOURS NEEDED as needed for headache Comments: Last Taken: 03/12/17 Time: 3:30 pm Ondansetron (Zofran Odt) 4 MG TAB.RAPDIS 1 Tablet SUBLINGUAL THREE TIMES DAILY as needed for NAUSEA/VOMITING Qty = 50 Comments: NOT GIVEN IN HOSPITAL Lorazepam (Lorazepam) 0.5 MG TABLET 0.5 Tablet ORAL DAILY Comments: Last Taken: 03/12/17 Time: 10 am *0.25 mg given* Lorazepam (Ativan) 0.5 MG TABLET 1 Tablet ORAL Every night Comments: Last Taken: 03/11/17 Time: 10:30 pm Acetaminophen (Tylenol Extra Strength) 500 MG TABLET 1 Tablet ORAL as needed for PAIN Comments: Last Taken: 03/11/17 Time: 10:30 pm Start taking the following new medications: Aspirin (Aspirin*) 81 MG TAB.CHEW 1 Tablet ORAL DAILY Qty = 30 No Refills Simvastatin (Zocor*) 20 MG TABLET 1 Tablet ORAL DAILY Qty = 30 No Refills Copies To: PER LEARY,RADAMES WHITAKER MD,STACEY Aponte Attending MD Review Statement Documenting Attending: GIO LEARY,JAYNA Villarreal Other Findings: please see my separate attending note for more details
--- NOTE | 2017-03-12 15:53 | PN- Att Addend ---
Attending MD Review Statement Attending Statement Attending MD Statement: examined this patient, discuss w/resident/PA/DIESEL TRAILER MECHANIC, agreed w/resident/PA/DIESEL TRAILER MECHANIC, reviewed EMR data (avail), discussed w/nursing, discussed w/ case mgmt Attending Assessment/Plan: Laboratory Tests 03/12/17 0330: Troponin I < 0.01, TSH 11.900 H 03/11/17 2125: Troponin I < 0.01 Vital Signs Date Time Temp Pulse Resp B/P B/P Pulse O2 O2 Flow FiO2 Mean Ox Delivery Rate 03/12 0836 95 Room Air 03/12 0806 97.1 77 18 120/82 95 Room Air 03/12 0004 97.9 73 18 130/60 97 Room Air 03/11 2103 98.2 84 20 166/98 99 Room Air 03/11 1929 6.1 71 18 162/76 96 Room Air 03/11 1727 96.0 80 18 135/60 100 Room Air pt seen and examined at bedside. D/w neurology the care plan. MRI shows no acute stroke. Pt symptoms likely secondary to complicated migraine. Dc home. Pt was admitted with possible acute stroke given the neurological symptoms.
== END 2017-03-12 16:30 | DRG 54 ==
LOC: ENRESERVDT → ENRESERVTM → ERH 12:24 → ERHI 18:03 → 1NO 18:03 → EDBEDREQ 18:26 → 1NO 20:00 → ENPENDDIS 03-12 15:08 → 1NO 03-12 16:30
PROVIDERS: Emergency Medicine; ADMIT Internal Medicine
DX: G43.909 Migraine, unspecified, not intractable, without status migrainosus (principal); F41.9 Anxiety disorder, unspecified; E03.9 Hypothyroidism, unspecified; G89.29 Other chronic pain; J44.9 Chronic obstructive pulmonary disease, unspecified; R29.810 Facial weakness; M19.90 Unspecified osteoarthritis, unspecified site; Z87.891 Personal history of nicotine dependence; E78.00 Pure hypercholesterolemia, unspecified
CPT/HCPCS: 1NSP; 70551; 36415; 90853; 93005; 93010; 96361; 96374; J0131; J1650; J3490

== ENCOUNTER 2017-11-25 11:06 | Observation (INO) | payer OTHER ==
[~2017-11-25] VITALS: Ht 167.6 cm; Wt 55.3 kg
[~2017-11-25 11:06] MED LIST changes: +ASPIRIN EC325 M2 PO; +ATIVAN0.5 M1 PO; +BUTALB-ACETAMI1 EAC1 PO; -FIORICET 50-301 EACH PO; +OMEPRAZOLE40 M1 PO; +PEPCID40 M1 PO; +RELPAX40 M1 PO; +TYLENOL EXTRA500 M2 PO; +ZOCOR20 M1 PO; +ZOFRAN8 M1 PO
[2017-11-25 12:34] LABS: ABSOLUTE BASOPHIL COUNT 0 /CUMM (0.0-0.2); ABSOLUTE EOSINOPHIL COUNT 0 /CUMM (0.0-0.7); ABSOLUTE GRANULOCYTE CT 5.4 /CUMM (1.4-6.5); ABSOLUTE LYMPH COUNT 1.4 /CUMM (1.2-3.4); ABSOLUTE MONOCYTE COUNT 0.4 /CUMM (0.10-0.60); BASOPHIL % 0.5 % (0.0-2.0); EOSINOPHIL % 0.5 % (0-5); GRANULOCYTE % 74.6 % (42.2-75.2); HEMATOCRIT 41.6 % (37-47); MEAN CORPUSCULAR HGB 30.8 PG (27.0-31.0); MEAN CORPUSCULAR HGB CONC 34.5 G/DL (33.0-37.0); MEAN CORPUSCULAR VOLUME 89.3 FL (81.0-99.0); MEAN PLATELET VOLUME 8.8 FL (7.4-10.4); PLATELET COUNT 235 /CUMM (130-400); RBC DISTRIBUTION WIDTH 12.4 % (11.5-14.5); RED BLOOD CELL CT 4.66 /CUMM (4.20-5.40); WHITE BLOOD CELL COUNT 7.2 /CUMM (4.8-10.8)
--- NOTE | 2017-11-25 13:04 | ED CARDIAC/CP/PALPITATIONS ---
History of Present Illness General Chief Complaint: Palpitations Stated Complaint: PALPIATIONS Source: patient, old records Exam Limitations: no limitations Vital Signs & Intake/Output Vital Signs & Intake/Output Vital Signs Date Time Temp Pulse Resp B/P B/P Pulse O2 O2 Flow FiO2 Mean Ox Delivery Rate 11/26 1730 98.2 71 18 142/75 95 Room Air 11/26 1511 97.9 77 18 146/84 96 Room Air 11/26 1252 77 22 140/86 97 Room Air ED Intake and Output 11/27 0000 11/26 1200 Intake Total Output Total Balance Patient 122 lb Weight Allergies Coded Allergies: hydromorphone (Severe, THROAT FEELS LIKE IT'S CLOSING/RASH 12/06/16) dexlansoprazole (RASH 12/06/16) promethazine (From PHENERGAN) (ANXIETY 03/11/17) NSAIDS (Non-Steroidal Anti-Inflamma (ABDOMINAL PAIN 12/06/16) Reconcile Medications Acetaminophen (Tylenol Extra Strength) 500 MG TABLET 1 TAB PO PRN PAIN ( Reported) Butalb/Acetaminophen/Caffeine (Nlemgx-Oxioqtdx-Irvo 50-300-40) 50 MG-300 MG-40 MG CAPSULE 1-2 TAB PO PRN MIGRAINES (Reported) Eletriptan HBr (Relpax) 40 MG TABLET 1 TAB PO AD PRN MIGRAINES (Reported) Lorazepam 0.5 MG TABLET 0.5 TAB PO DAILY ANXIETY (Reported) Lorazepam (Ativan) 0.5 MG TABLET 1 TAB PO QPM ANXIETY (Reported) Triage Note: PT TO ED C/O "RACING HEART AND PALPITATIONS" X A FEW WEEKS. C/O FEELING NAUSEA, DIZZY, LIGHTHEADED. C/O LEFT SIDE OF FACE FEELING NUMB AND TINGLY WITH LEFT EYE TWITCHING WITH BLURRED VISION. Triage Nurses Notes Reviewed? yes Onset: Abrupt Duration: week(s):, intermittent, waxing and waning Timing: recent history Quality/Severity: moderate Radiation: neck Nitro Today/Relief: no nitro taken today Associated Symptoms: dizziness HPI: 62 Year old female with PMHx of tia, migraine headaches, remote history of TIA and generalized anxiety disorder presents to ER for evaluation complaining of multiple near syncopal episodes feeling lightheaded dizzy palpitations going on for the past several weeks worse over the past 1 week. She states she was had a near-syncopal episode at [facility] she was helped onto the ground there was no loss of consciousness. She did not hit her head. She states during these episodes she intermittently receives palpitations, chest pain that radiates into her neck. She denies any symptoms at this time she does report she's been under increased stress at home area about the hallway nausea vomiting. Patient states she is scheduled to see a bulwark carpenter for the first time this . She states also she's had episodes intermittently of left-sided facial tingling and blurry vision both of which she denies at this time. she does report to a 20 lb weightloss over the past 1 month The patient states her last previous TIA many years ago she had left-sided weakness, slurred speech (Franco Dorsey) Past History Travel History Traveled to [place] past 21 day No Medical History Any Pertinent Medical History? see below for history Neurological: migraine, TIA, vertigo EENT: allergies Cardiovascular: arrhythmia Respiratory: COPD Gastrointestinal: H PYLORI Hepatic: NONE Renal: NONE Musculoskeletal: chronic back pain, osteoarthritis, CHRONIC NECK PAIN Psychiatric: anxiety, depression Endocrine: hypothyroidism Blood Disorders: NONE Cancer(s): NONE ENGRAVER PANTOGRAPH/Reproductive: NONE History of MRSA: No History of VRE: No History of CDIFF: No Surgical History Surgical History: non-contributory Psychosocial History Who do you live with Family Services at Home None What is your primary language Polish Tobacco Use: Quit >30 days ago ETOH Use: denies use Illicit Drug Use: denies illicit drug use Family History Family History, If Any: MOTHER FH: diabetes mellitus FH: HTN (hypertension) FATHER, , Age 40-50; Cause: Rheumatic heart disease. FH: rheumatic heart disease Hx Contributory? No (Franco Dorsey) Review of Systems Review of Systems Constitutional: Reports: no symptoms, see HPI. Comments Review of systems: See HPI, All other systems negative. Constitutional, no chills no fever, HEENT: no sore throat no congestion Cardiovascular: chest pain Skin: no rashes, no change in skin Respiratory: No dyspnea no cough no sputum GI: No nausea no vomiting, no diarrhea : No dysuria Muscle skeletal: No joint pain, no back pain, no neck pain, Neurologic: , no headache Psych: stress Heme/endocrine: No bruising Immunology: No lymphadenopathy (Franco Dorsey) Physical Exam Physical Exam General Appearance: well developed/nourished, alert, awake Cardiovascular: regular rate/rhythm Comments: Well-developed well-nourished person in no acute distress HEENT: Normal EENT exam; PERRL, EOMI, no nystagmus. HEAD is atraumatic. moist mucous membranes. Neck: Supple, normal range of motion without pain or tenderness Back: Full range of motion Cardiovascular: Regular rate and rhythms no murmur, normal JVP Respiratory: Chest nontender.There were no bony deformities, no asymmetry. No respiratory distress. Patient speaking in full complete sentences. Breath sounds clear to auscultation bilaterally: NO W/R/R Abdomen: Soft, nontender nondistended, no appreciable organomegaly. Normal bowel sounds. No rebound/guarding, Extremity: No edema, full range of motion of extremities Neuro: Alert oriented x3, motor sensory normal, cranial nerves II through XII grossly intact. There were no obvious focal neurologic abnormalities. Skin: No appreciable rash on exposed skin, skin is warm and dry. Psych: Mood and affect is normal, memory and judgment is normal. Core Measures ACS in differential dx? Yes CVA/TIA Diagnosis No Sepsis Present: No Sepsis Focused Exam Completed? No (Franco Dorsey) Progress Differential Diagnosis: AMI, atrial fibrillation, intracranial hemorrhage, musculoskeletal pain, PSVT, PVCs/PACs, anxiety, unstable angina, cva, vertigo Plan of Care: Orders Procedure Date/time Status HOLTER MONITOR 24HRS (GEN) 11/26 1547 Active Discharge Patient 11/26 UNK Active Laboratory Tests 11/26/17 1707: Creatine Kinase Cancelled labs ordered, old records reviewed pt denies any cp dizziness at this time. case d/w dr bey. pt has remained nsr on the monitor pending ct d/w the pt all of her results, given epsioses of sx, near syncope i d/w pt i believe premature discharge would be medically harmful at this time. case d/w dr logan who agrees with plan and will consult 170 DR LOGAN IN DEPT TO CONSULT d/w with dr marshall will place in tele obs Diagnostic Imaging: Viewed by Me: Radiology Read, CT Scan. Discussed w/RAD: Radiology Read, CT Scan. Radiology Impression: PATIENT: RED CHAVEZ PRESENT AGE: 62 PATIENT ACCOUNT NO: [id number] : 53 LOCATION: [facility] ORDERING PHYSICIAN: Franco GARCIA SERVICE DATE: 11/25/17 EXAM TYPE: CAT - CT HEAD WO IV CONTRAST EXAMINATION: CT HEAD WITHOUT CONTRAST CLINICAL INFORMATION: Left sided facial numbness. COMPARISON: February 2017. TECHNIQUE: Contiguous axial images of the brain were obtained without IV contrast. DLP: 601 mGy-cm. FINDINGS : There are no pathologic extra-axial fluid collections. The lateral, third, fourth ventricles are nondilated and concordant with the appearance of the sulci. There is no evidence for acute intraparenchymal hemorrhage or infarct. There is neither mass nor mass effect. There is no shift of midline structures. The paranasal sinuses and mastoid air cells are clear. There are no osseous lesions. IMPRESSION: No evidence for acute intracranial injury. DICTATED BY: Osvaldo Pena MD DATE/TIME DICTATED:11/25/171416 UNDERWRITING SUPPORT SPECIALIST:SEGOVIA DATE/TIME TRANSCRIBED:11/25/171416 CONFIDENTIAL, DO NOT COPY WITHOUT APPROPRIATE AUTHORIZATION. <Electronically signed in Other Vendor System> SIGNED BY: Osvaldo Pena MD 11/25/17 1424, PATIENT: RED CHAVEZ PRESENT AGE: 62 PATIENT ACCOUNT NO: [id number] : 53 LOCATION: [facility] ORDERING PHYSICIAN: Franco GARCIA SERVICE DATE: 11/25/17 EXAM TYPE: RAD - XRY-PORTABLE CHEST XRAY EXAMINATION: XR PORTABLE CHEST CLINICAL INFORMATION: Chest pain palpitations. Left-sided numbness. COMPARISON: Chest radiograph dated 03/11/2017. TECHNIQUE: Portable frontal view of the chest was obtained. FINDINGS: The trachea is in normal anatomic position. The cardiomediastinal silhouette is normal in size and configuration. The lungs are clear. Pleural spaces are clear. No acute osseous abnormality. IMPRESSION: Stable examination. No acute cardiopulmonary disease. DICTATED BY: Chase Kaminski MD DATE/TIME DICTATED:11/25/171417 UNDERWRITING SUPPORT SPECIALIST:OSMEL DATE/TIME TRANSCRIBED:11/25/171417 CONFIDENTIAL, DO NOT COPY WITHOUT APPROPRIATE AUTHORIZATION. <Electronically signed in Other Vendor System> SIGNED BY: Chase Kaminski MD 11/25/171422 Initial ED EKG: normal intervals, normal p-waves, normal QRS complex, normal sinus rhythm Rhythm Strip: normal sinus rhythm (Franco Dorsey) Departure Departure Time of Disposition: 1643 Disposition: STILL A PATIENT Condition: Stable Clinical Impression Primary Impression: Near syncope Secondary Impressions: Palpitations Referrals: Carmelo Whitaker MD (PCP/Family) Departure Forms: Customer Survey General Discharge Information Observation Note Spoke With: Ever Marshall MD Physician Advisor Notified: OLEG BEY MD Place Patient In: Non-ED OBS Care Area Rationale for Observation: My rational for observation is as follows telemetry monitoring cardiology consult trend labs transient troponin premature discharge would BE medically harmful patient has had multiple near syncopal episodes or falls she is a fall risk (Franco Dorsey) PA/ALLIANCE CONSULTANT Co-Sign Statement Statement: ED Attending supervision documentation- [] I saw and evaluated the patient. I have also reviewed all the pertinent lab results and diagnostic results. I agree with the findings and the plan of care as documented in the PA's/ALLIANCE CONSULTANT's documentation. [X] I have reviewed the ED Record and agree with the PA's/ALLIANCE CONSULTANT's documentation. [] Additions or exceptions (if any) to the PAs/ALLIANCE CONSULTANT's note and plan are summarized below: [] (Mirlande LEARY,Denisha) Critical Care Note Critical Care Note Critical Care Time: non-applicable (Franco Dorsey) Referrals: Carmelo Whitaker MD (PCP/Family) Departure Forms: Customer Survey General Discharge Information Observation Note Spoke With: Ever Marshall MD Physician Advisor Notified: OLEG BEY MD Place Patient In: Non-ED OBS Care Area Rationale for Observation: My rational for observation is as follows telemetry monitoring cardiology consult trend labs transient troponin premature discharge would BE medically harmful patient has had multiple near syncopal episodes or falls she is a fall risk Critical Care Note Critical Care Note Critical Care Time: non-applicable
--- NOTE | 2017-11-25 14:23 | RADIOLOGY REPORT ---
EXAMINATION: XR PORTABLE CHEST CLINICAL INFORMATION: Chest pain palpitations. Left-sided numbness. COMPARISON: Chest radiograph dated 03/11/2017. TECHNIQUE: Portable frontal view of the chest was obtained. FINDINGS: The trachea is in normal anatomic position. The cardiomediastinal silhouette is normal in size and configuration. The lungs are clear. Pleural spaces are clear. No acute osseous abnormality. IMPRESSION: Stable examination. No acute cardiopulmonary disease.
--- NOTE | 2017-11-25 14:24 | CT SCAN REPORT ---
EXAMINATION: CT HEAD WITHOUT CONTRAST CLINICAL INFORMATION: Left sided facial numbness. COMPARISON: February 2017. TECHNIQUE: Contiguous axial images of the brain were obtained without IV contrast. DLP: 601 mGy-cm. FINDINGS: There are no pathologic extra-axial fluid collections. The lateral, third, fourth ventricles are nondilated and concordant with the appearance of the sulci. There is no evidence for acute intraparenchymal hemorrhage or infarct. There is neither mass nor mass effect. There is no shift of midline structures. The paranasal sinuses and mastoid air cells are clear. There are no osseous lesions. IMPRESSION: No evidence for acute intracranial injury.
--- NOTE | 2017-11-25 17:17 | History & Physical ---
Lila LEARY,Óscar 11/25/17 4957: General Information and HPI History of Present Illness: Ms. Gaitan is a 62-year-old female with past medical history of vestibular migraines, TIA, BPV, COPD, H. pylori, chronic back/neck pain, anxiety, depression, hypothyroidism, and osteoporosis who presents with palpitations. The patient notes that she has been followed by neurologist Dr. Koroma for her vestibular migraines that she gets daily. She notes that she started getting palpitations 8 weeks ago at [facility] where she syncopized and someone caught her. She did not get evaluated for this at that time. She does have dizziness and palpitations since then it sometimes wakes her up at night. She went to go to the doctor and they ordered some tests including an echocardiogram, Holter, nuclear stress test but she has not had them yet. She does that she has been disabled for 2 years because of her migraines that are daily. There is a 58 with aura that his visual, blurriness, and weakness. She does that she has had weakness on the left side of her face for about 5 days that she has had generalized weakness for much longer. She zoster of the exact timing. Review systems also positive for tinnitus, chest pain under her breast, bowel pain, diarrhea. No hearing loss, incontinence, leg swelling, or shortness of breath. The patient is a former smoker but denies alcohol or drug use. Allergies/Medications Allergies: Coded Allergies: hydromorphone (Severe, THROAT FEELS LIKE IT'S CLOSING/RASH 12/06/16) dexlansoprazole (RASH 12/06/16) promethazine (From PHENERGAN) (ANXIETY 03/11/17) NSAIDS (Non-Steroidal Anti-Inflamma (ABDOMINAL PAIN 12/06/16) Home Med list Acetaminophen (Tylenol Extra Strength) 500 MG TABLET 1 TAB PO PRN PAIN ( Reported) Butalb/Acetaminophen/Caffeine (Exyudr-Ldeervaf-Mbzl 50-300-40) 50 MG-300 MG-40 MG CAPSULE 1-2 TAB PO PRN MIGRAINES (Reported) Eletriptan HBr (Relpax) 40 MG TABLET 1 TAB PO AD PRN MIGRAINES (Reported) Lorazepam 0.5 MG TABLET 0.5 TAB PO DAILY ANXIETY (Reported) Lorazepam (Ativan) 0.5 MG TABLET 1 TAB PO QPM ANXIETY (Reported) Past History Travel History Traveled to [place] past 21 day No Medical History Neurological: migraine, TIA, vertigo EENT: allergies Cardiovascular: arrhythmia Respiratory: COPD Gastrointestinal: H PYLORI Hepatic: NONE Renal: NONE Musculoskeletal: chronic back pain, osteoarthritis, CHRONIC NECK PAIN Psychiatric: anxiety, depression Endocrine: hypothyroidism Blood Disorders: NONE Cancer(s): NONE CHIEF OF POLICE/Reproductive: NONE History of MRSA: No History of VRE: No History of CDIFF: No Surgical History Surgical History: non-contributory Past Family/Social History Family History Relations & Conditions if any MOTHER FH: diabetes mellitus FH: HTN (hypertension) FATHER, , Age 40-50; Cause: Rheumatic heart disease. FH: rheumatic heart disease Psychosocial History Who Do You Live With? son and his girlfriend Services at Home: None Primary Language: Zimbabwean ETOH Use: denies use Illicit Drug Use: denies illicit drug use Functional Ability ADLs Independent: dressing, eating, toileting, bathing. Ambulation: independent IADLs Independent: shopping, housework, finances, food prep, telephone, transportation , medication admin. Review of Systems Review of Systems Constitutional: Reports: see HPI. EENTM: Reports: see HPI. Cardiovascular: Reports: see HPI. Respiratory: Reports: no symptoms. GI: Reports: see HPI. Genitourinary: Reports: no symptoms. Musculoskeletal: Reports: no symptoms. Skin: Reports: no symptoms. Neurological/Psychological: Reports: see HPI. Hematologic/Endocrine: Reports: no symptoms. Immunologic/Allergic: Reports: no symptoms. All Other Systems: Reviewed and Negative Exam & Diagnostic Data Last 24 Hrs of Vital Signs/I&O Vital Signs Date Time Temp Pulse Resp B/P B/P Pulse O2 O2 Flow FiO2 Mean Ox Delivery Rate 11/25 1437 Room Air 11/25 1417 98.0 74 18 131/74 98 Room Air 11/25 1115 97.1 83 20 148/89 97 Room Air Intake & Output 11/25 1600 11/25 0800 11/25 0000 Intake Total 1000 Output Total Balance 1000 Intake, IV 1000 Patient 122 lb Weight Weight Reported by Patient Measurement Method Physical Exam General Appearance Alert, Oriented X3, Cooperative, No Acute Distress Skin No Rashes HEENT Atraumatic, PERRLA, Left ptosis Neck Supple Cardiovascular Regular Rate, Normal S1, Normal S2 Lungs Clear to Auscultation Abdomen Normal Bowel Sounds, Soft, mildly tender diffusly Neurological romberg positive, Left upper and lower extemity 4/5 strength, left facial droop with weakness. No sensory abmoralities. No ataxia. Extremities No Edema, Normal Pulses, No Tenderness/Swelling Last 24 Hrs of Labs/Cody: Laboratory Tests 11/25/17 1218: Anion Gap 10, Estimated GFR > 60, BUN/Creatinine Ratio 10.0, Glucose 106 H, Calcium 10.0, Total Bilirubin 0.5, AST 16, ALT 25, Alkaline Phosphatase 66, Troponin I < 0.01, Total Protein 7.2, Albumin 4.3, Globulin 2.9, Albumin/ Globulin Ratio 1.5, TSH 5.570 H, CBC w Diff NO MAN DIFF REQ, RBC 4.66, MCV 89.3 , MCH 30.8, RDW 12.4, MPV 8.8, Gran % 74.6, Lymphocytes % 19.0 L, Monocytes % 5.4, Eosinophils % 0.5, Basophils % 0.5, Absolute Granulocytes 5.4, Absolute Lymphocytes 1.4, Absolute Monocytes 0.4, Absolute Eosinophils 0, Absolute Basophils 0, PUBS MCHC 34.5 Assessment/Plan Assessment: Ms. Gaitan is a 62-year-old female with past medical history of vestibular migraines, TIA, BPV, COPD, H. pylori, chronic back/neck pain, anxiety, depression, hypothyroidism, and osteoporosis who presents with palpitations. Presentation, vital signs were T 97.1, HR 83, RR 20, BP 140/89, saturating 97% on room air. Laboratories were significant for normal CBC, BUN 6, creatinine 0.6 , glucose 105, normal LFTs, troponin less than 0.01, TSH 5.570. Chest x-ray and head CT were negative for any acute processes. She received 1 L normal saline and lorazepam in the emergency room. She'll be placed in observation on telemetry and treated for the following problems: 1. Focal weakness/dizziness 2. Hypothyroidism 3. Palpitations #Focal weakness/dizziness: Patient's symptoms are concerning for cerebrovascular accident vs acute vestibular syndrome. Symptoms that she has had multiple TIAs in the past. She does not know when her symptoms started, seems to be more chronic. Though head CT was negative, she would benefit from magnetic resonance imaging. -MRI -Neurology consult -Swallow eval #Palpitations: Unknown origin. Seems like she was meant to have a Holter monitor at some point. -Cardiology consult -EKG and troponins 3 -TTE -Carotid Dopplers -Telemetry monitoring #Hypothyroidism: Patient has subclinical hypothyroidism and she refuses treatment because of the side effects that she gets. -Consider endocrinology consult DVT prophylaxis with Lovenox Regular diet Full code As Ranked By This Provider Problem List: 1. Dizziness Core Measures/Misc (08/10) Acute Coronary Syndrome ACS Diagnosis: No Congestive Heart Failure Congestive Heart Failure Diagnosis No Cerebrovascular Accident CVA/TIA Diagnosis: Yes NIH Stroke Scale: Total 4 Reason tPA not ordered Medical Contraindication VTE (View Protocol) VTE Risk Factors Age>40 No Mechanical VTE Prophylaxis d/t N/A MechProphylax Ordered No VTE Pharm Prophylaxis d/t NA PharmProphylax ordered Sepsis (View protocol) Sepsis Present: No Lorelei Cuevas MD 11/25/17 1805: Observation Initial Note - I have personally examined RED GAITAN on 11/25/17 at 1806. The disposition of RED GAITAN is uncertain at this time and before a determination can be made, she requires a period of observation for the following reasons [SYNCOPE] Resident Review Statement Resident Statement: examined this patient, discussed with international logistics analyst, agreed with international logistics analyst, reviewed EMR data (avail) Other Findings: Patient is a 62-year-old female with significant past medical history of vestibular migraine, severe anxiety, hypothyroidism, not on medication, osteoporosis, not on medication, hyperlipidemia, COPD, presented with chief complaints of palpitations since last 6-8 weeks, associated with generalized weakness and episode of syncope. According to the patient, she was diagnosed as having arrhythmia, around 10 years ago and was advised by Dr. Barger to have radiofrequency ablation. But she did not go through it and palpitation subsided by itself. She again started having this since last 6-8 weeks. She did find it as sudden in onset, even workup in the night's, while sleeping, associated with dizziness, weakness and sometimes chest pain located on the left side of the chest. Around 4 weeks ago when she went into the [facility] she suddenly had an episode of palpitation followed by generalized weakness, so she need to set down for a few minutes. She denies for any unconsciousness, tongue bite, incontinence of the stool and the urine at that time. She went to her PCP advised her to have echocardiogram/ Holter monitoring/nuclear stress test, but she did not able to take the appointment for them. She is also having history of migraines since last 8 year, which was diagnosed as having vestibular migraine. She was following neurologist [facility] [place] and getting IV infusions once every 2 months(?" Combination of ondansetron/ prednisone), she sometimes also take rizantrptan for migrains. She takes Fiorinal 2 tablet daily for migraine. She describes her episode of migraine as having weakness on the left side of the face, left hand along with dropping of the left side of the eye with blurry vision. It usually subsided and 3-4 hours. Past medical history - Vestibular migraine Hypothyroidism -she is not on medication because she cannot tolerate it, uncontrolled tremors Osteoporosis -cannot tolerate the medication. History of COPD, quit the smoking [address] Farley at [place] History of anxiety -Take Ativan 0.5 milligrams daily History of TIA Personal history-she is pretty active, except since last 6-8 weeks, lives with her son, quit smoking around 10 years ago was smoking 2 packs per day, denies for any alcohol, illicit drug abuse. Family history-mother with diabetes, cancer of vagina, but the diet in early age because of GA, sister having history of migraine Allergies-Dilaudid -anaphylaxis, Daxillant -rash, Halodol -altered mental status ED course -temperature 97.1, pulse 83, respiratory 20, blood pressure 148/89, SPO2 97% on room air. On examination , she was conscious and cooperative, oriented to time, place and person. On neurological examination -dropping of left-sided, weakness of left-sided facial muscle, 4 by 5 power in left upper and lower limb, central ataxia, intentional tremors, Romberg sign positive, cerebellar exam -finger-nose test was normal, but still having tremors on action , cranial nerves intact. Blood workup showed CBC and chemistry within normal limit. Lipid profile showed cholesterol 237, LDL 154, HDL 68. Thyroid profile shows TSH 5.570. Chest x-ray did not show any acute cardiopulmonary process, CT scan of the head did not show any acute intracranial injury. It was decided to admit the patient to telemetry floor for further cardiac and neurological evaluation. Assessment and plan -patient is a 62-year-old female with coronary artery disease risk factors with history of vestibular migraine presented with chief complaints of episodic palpitation. EKG showed normal sinus rhythm. She was diagnosed as having arrhythmia, around 10 years ago and was advised for radiofrequency ablation.She did not went through it. We will get the records. Palpitation under evaluation - * We'll observe the patient into telemetry floor * We will do serial troponins and EKG * Will obtain cardiology consult and follow the recommendation * We'll follow echocardiogram * Vitals every shift * We'll start the patient on aspirin and atorvastatin * We'll hold caffeine and triptan and use NSAIDs as needed We'll get the records from the [place], to know history of arrhythmia andtreatment. Vestibular migraine with possible TIA * CT scan of the head did not show any intracranial abnormality * We will follow MRI of the brain * We will check every 4 hourly * We'll follow neurology recommendation * We'll stop caffeine and triptan and use NSAIDs as needed COPD * TRC/Nebulization Hypothyroidism ( TSH -5.570) * Not on medication Hyperlipidemia * We will start her on Atorvastatin 40mg Daily Diet - Heart healthy diet DVT Prophylaxis - heparin Code status - FC Ever Fisher MD 11/25/17 1827: Attending MD Review Statement Attending Statement Attending MD Statement: examined this patient, discuss w/resident/PA/LASTING FLOORWORKER, agreed w/resident/PA/LASTING FLOORWORKER, reviewed EMR data (avail) Attending Assessment/Plan: 62F PMH vestibular migraines, history of TIA, generalized anxiety disorder presenting with a long history of episodes of palpitations and lightheadedness which have been worsening of late with several episodes this week, described as heart racing, sweaty, lightheaded, with several episodes of near syncope. She also notes episodes of left sided chest pain at rest lasting less than an hour, unprovoked, not necessarily associated with her lightheaded episodes. On exam she has a chronic left eye droop and ataxia to the left, which is also chronic. Remaining neuro exam is normal. EKG is NSR, labs unremarkable, CT head negative. Plan: Observation in telemetry, neuro and cardiology consults, echocardiogram, TSH, MRI head, orthostatics, ASA, statin, continue home meds, DVT PPx.
--- NOTE | 2017-11-25 17:25 | Cons- Cardiology ---
General Information and HPI Consulting Request Date of Consult: 11/25/17 Requested By: RADHA Marlow Reason for Consult: Palpitations, syncope History of Present Illness: The patient is a 62-year-old female with no cardiac history who presents with complaint of palpitations and possible syncope. The palpitations have been intermittent over the past few months. She describes them as a sensation of her heart racing with associated lightheadedness, dizziness, nausea. [facility] and had [facility] possible syncopal episode in which she collapsed and was caught by another person to prevent her from hitting the floor. She is unsure whether she fully lost consciousness at that time. She's had multiple presyncopal episodes of lightheadedness without cristiane loss of consciousness. The symptoms have severely worsened over the past week. She saw Dr. Merida in the office 6 weeks ago and testing was ordered, however due to scheduling difficulties she was unable to schedule any of the tests. She notes intermittent sharp pain in the left side of her chest under the left breast most recently this morning. The pain lasts for up to 30 minutes per episode. She notes intermittent tingling of the left side of her face. She has a history of migraines. She had a TIA many years ago which consisted of left-sided weakness and slurred speech. No shortness of breath. No diaphoresis. No orthopnea. No nausea or vomiting. No diaphoresis. Allergies/Medications Allergies: Coded Allergies: hydromorphone (Severe, THROAT FEELS LIKE IT'S CLOSING/RASH 12/06/16) dexlansoprazole (RASH 12/06/16) promethazine (From PHENERGAN) (ANXIETY 03/11/17) NSAIDS (Non-Steroidal Anti-Inflamma (ABDOMINAL PAIN 12/06/16) Home Med List: Acetaminophen (Tylenol Extra Strength) 500 MG TABLET 1 TAB PO PRN PAIN ( Reported) Butalb/Acetaminophen/Caffeine (Tebzit-Xhleoslc-Zpzf 50-300-40) 50 MG-300 MG-40 MG CAPSULE 1-2 TAB PO PRN MIGRAINES (Reported) Eletriptan HBr (Relpax) 40 MG TABLET 1 TAB PO AD PRN MIGRAINES (Reported) Lorazepam 0.5 MG TABLET 0.5 TAB PO DAILY ANXIETY (Reported) Lorazepam (Ativan) 0.5 MG TABLET 1 TAB PO QPM ANXIETY (Reported) Current Medications: Current Medications Sig/David Start time Last Medication Dose Route Stop Time Status Admin Lorazepam 0 .STK-MED ONE 11/25 1431 DC .ROUTE Lorazepam 1 MG ONCE ONE 11/25 1345 DC 11/25 IV 11/25 1346 1436 Sodium Chloride 1,000 ML BOLUS ONE 11/25 1345 DC 11/25 IV 11/25 1444 1436 Review of Systems Review of Systems: No rash. No tremor. No melena. No hemoptysis. All other systems were reviewed, and were noted to be negative. Past History Travel History Traveled to [place] past 21 day No Medical History Neurological: migraine, TIA, vertigo EENT: allergies Cardiovascular: arrhythmia Respiratory: COPD Gastrointestinal: H PYLORI Hepatic: NONE Renal: NONE Musculoskeletal: chronic back pain, osteoarthritis, CHRONIC NECK PAIN Psychiatric: anxiety, depression Endocrine: hypothyroidism Blood Disorders: NONE Cancer(s): NONE PRECISION LENS TECHNICIAN/Reproductive: NONE Surgical History Surgical History: non-contributory Family History Relations & Conditions If Any: MOTHER FH: diabetes mellitus FH: HTN (hypertension) FATHER, , Age 40-50; Cause: Rheumatic heart disease. FH: rheumatic heart disease Psychosocial History Who Do You Live With? son and his girlfriend Services at Home: None Primary Language: Occitan ETOH Use: denies use Illicit Drug Use: denies illicit drug use Functional Ability ADLs Independent: dressing, eating, toileting, bathing. Ambulation: independent IADLs Independent: shopping, housework, finances, food prep, telephone, transportation , medication admin. Exam & Diagnostic Data Vital Signs and I&O Vital Signs Date Time Temp Pulse Resp B/P B/P Pulse O2 O2 Flow FiO2 Mean Ox Delivery Rate 11/25 1437 Room Air 11/25 1417 98.0 74 18 131/74 98 Room Air 11/25 1115 97.1 83 20 148/89 97 Room Air Intake & Output 11/25 1600 11/25 0800 11/25 0000 11/24 1600 11/24 0811/24 0000 Intake Total 1000 Output Total Balance 1000 Intake, IV 1000 Patient 122 lb Weight Weight Reported by Patient Measurement Method Physical Exam: Gen: The patient is in no acute distress HEENT: Normal nose, ears, and oropharynx. Pupils equal bilaterally. Conjunctiva normal. Neck: Supple with no JVD, no masses, and no thyromegaly Lungs: Clear to auscultation with normal respiratory effort Heart: RRR, S1, S2, no murmurs. No peripheral edema, 2+ pulses in the lower extremities bilaterally Abdomen: Soft, nontender, no masses. No hepatomegaly. No splenomegaly Extremities: No clubbing or cyanosis. Normal muscle strength in the upper and lower extremities Skin: Normal skin turgor with no skin ulcers or lesions noted. Neuro: Cranial nerves intact. Sensation intact Psych: Alert and oriented 3 with appropriate affect Labs/Cody Results: Laboratory Tests 11/25 1218 Chemistry Sodium (137 - 145 mmol/L) 141 Potassium (3.5 - 5.1 mmol/L) 3.9 Chloride (98 - 107 mmol/L) 101 Carbon Dioxide (22 - 30 mmol/L) 29 Anion Gap (5 - 16) 10 BUN (7 - 17 mg/dL) 6 L Creatinine (0.5 - 1.0 mg/dL) 0.6 Estimated GFR (>60 ml/min) > 60 BUN/Creatinine Ratio (7 - 25 %) 10.0 Glucose (65 - 99 mg/dL) 106 H Calcium (8.4 - 10.2 mg/dL) 10.0 Total Bilirubin (0.2 - 1.3 mg/dL) 0.5 AST (14 - 36 U/L) 16 ALT (9 - 52 U/L) 25 Alkaline Phosphatase (<127 U/L) 66 Troponin I (< 0.11 ng/ml) < 0.01 Total Protein (6.3 - 8.2 g/dL) 7.2 Albumin (3.5 - 5.0 g/dL) 4.3 Globulin (1.9 - 4.2 gm/dL) 2.9 Albumin/Globulin Ratio (1.1 - 2.2 %) 1.5 TSH (0.270 - 4.200 uIU/mL) 5.570 H Hematology CBC w Diff NO MAN DIFF REQ WBC (4.8 - 10.8 /CUMM) 7.2 RBC (4.20 - 5.40 /CUMM) 4.66 Hgb (12.0 - 16.0 G/DL) 14.4 Hct (37 - 47 %) 41.6 MCV (81.0 - 99.0 FL) 89.3 MCH (27.0 - 31.0 PG) 30.8 RDW (11.5 - 14.5 %) 12.4 Plt Count (130 - 400 /CUMM) 235 MPV (7.4 - 10.4 FL) 8.8 Gran % (42.2 - 75.2 %) 74.6 Lymphocytes % (20.5 - 51.1 %) 19.0 L Monocytes % (1.7 - 9.3 %) 5.4 Eosinophils % (0 - 5 %) 0.5 Basophils % (0.0 - 2.0 %) 0.5 Absolute Granulocytes (1.4 - 6.5 /CUMM) 5.4 Absolute Lymphocytes (1.2 - 3.4 /CUMM) 1.4 Absolute Monocytes (0.10 - 0.60 /CUMM) 0.4 Absolute Eosinophils (0.0 - 0.7 /CUMM) 0 Absolute Basophils (0.0 - 0.2 /CUMM) 0 PUBS MCHC (33.0 - 37.0 G/DL) 34.5 Diagnostic Data EKG Results EKG tracing is independently reviewed, and reveals normal sinus rhythm at 75 with probable left hypertrophy CXR Results The trachea is in normal anatomic position. The cardiomediastinal silhouette is normal in size and configuration. The lungs are clear. Pleural spaces are clear. No acute osseous abnormality Other Results Head CT: There are no pathologic extra-axial fluid collections. The lateral, third, fourth ventricles are nondilated and concordant with the appearance of the sulci. There is no evidence for acute intraparenchymal hemorrhage or infarct. There is neither mass nor mass effect. There is no shift of midline structures. The paranasal sinuses and mastoid air cells are clear. There are no osseous lesions. Assessment/Plan Assessment/Plan The patient is a 58 year-old female with family history of heart disease presenting with recent palpitations over the last 2 months associated with lightheadedness, dizziness, and presyncope. She had a possible episode of cristiane syncope [facility] ago [facility] which was associated with the palpitations. She also notes intermittent sharp pains in the left side of her chest. She has a past history of migraines and TIA, and she notes recent left facial tingling. Recommendations: * Would place on observation. * Monitor on telemetry for arrhythmias * Echocardiogram * Check serial troponin * Would consider obtaining carotid Doppler study given the history of TIA and the recent symptoms. Consult Acknowledgment - Thank you for your consult request.
--- NOTE | 2017-11-26 07:42 | PN- Housestaff ---
See Addendum Subjective Follow-up For: ACUTE VESTIBULAR SYNDROME VS CVA Tele-Events Since Last Visit: NSR Subjective: No overnight events. She did not sleep well, feels exhausted. She doesn't know if she is dizzy at this time, needs to wake up more. She is wondering if she can leave by 1:30 for an appt. No other complaints. Review of Systems Constitutional: Reports: see HPI. EENTM: Reports: no symptoms. Cardiovascular: Reports: no symptoms. Respiratory: Reports: no symptoms. Gastrointestinal: Reports: no symptoms. Genitourinary: Reports: no symptoms. Musculoskeletal: Reports: no symptoms. Skin: Reports: no symptoms. Neurological/Psychological: Reports: no symptoms. Hematologic/Endocrine: Reports: no symptoms. Immunologic/Allergic: Reports: no symptoms. Objective Last 24 Hrs of Vital Signs/I&O Vital Signs Date Time Temp Pulse Resp B/P B/P Pulse O2 O2 Flow FiO2 Mean Ox Delivery Rate 11/26 0727 98.5 77 12 112/68 97 Room Air 11/26 0248 97.8 71 22 128/70 98 Room Air 11/25 2352 97.8 82 18 130/70 97 Room Air 11/25 2133 98.3 94 18 112/66 94 Room Air 11/25 1825 98.0 98 18 136/62 98 Room Air 11/25 1437 Room Air 11/25 1417 98.0 74 18 131/74 98 Room Air 11/25 1115 97.1 83 20 148/89 97 Room Air Intake & Output 11/26 0800 11/26 0000 11/25 1600 Intake Total 1000 Output Total Balance 1000 Intake, IV 1000 Patient 122 lb 122 lb Weight Weight Reported by Patient Measurement Method Physical Exam General Appearance: Alert, Oriented X3, Cooperative, No Acute Distress Skin: No Rashes, No Breakdown, No Significant Lesion Cardiovascular: Regular Rate, Normal S1, Normal S2 Lungs: Clear to Auscultation, Normal Air Movement Abdomen: Normal Bowel Sounds, Soft, No Tenderness Neurological: consistent with prior Extremities: No Edema, Normal Pulses, No Tenderness/Swelling Current Medications: Current Medications Sig/David Start time Last Medication Dose Route Stop Time Status Admin Acetaminophen 650 MG Q4P PRN 11/25 2315 AC PO Aspirin Buffered 325 MG DAILY 11/25 1824 AC 11/25 PO 1855 Atorvastatin Calcium 40 MG 1700 11/26 1700 AC PO Enoxaparin Sodium 40 MG DAILY 11/26 1000 AC SC Lorazepam 0 .STK-MED ONE 11/25 1431 DC .ROUTE Lorazepam 1 MG ONCE ONE 11/25 1345 DC 11/25 IV 11/25 1346 1436 Sodium Chloride 1,000 ML BOLUS ONE 11/25 1345 DC 11/25 IV 11/25 1444 1436 Last 24 Hrs of Lab/Cody Results Last 24 Hrs of Labs/Mics: Laboratory Tests 11/26/17 0600: Triglycerides Cancelled, Cholesterol Cancelled, LDL Cholesterol, Calc Cancelled, HDL Cholesterol Cancelled, Cholesterol/HDL Ratio Cancelled 11/26/17 0243: Troponin I < 0.01, Triglycerides 59, Cholesterol 199, LDL Cholesterol, Calc 129, HDL Cholesterol 59, Cholesterol/HDL Ratio 3 11/25/17 2100: Troponin I < 0.01 11/25/17 1218: Anion Gap 10, Estimated GFR > 60, BUN/Creatinine Ratio 10.0, Glucose 106 H, Calcium 10.0, Total Bilirubin 0.5, AST 16, ALT 25, Alkaline Phosphatase 66, Troponin I < 0.01, Total Protein 7.2, Albumin 4.3, Globulin 2.9, Albumin/ Globulin Ratio 1.5, Triglycerides 79, Cholesterol 237 H, LDL Cholesterol, Calc 154 H, HDL Cholesterol 68 H, Cholesterol/HDL Ratio 3, TSH 5.570 H, CBC w Diff NO MAN DIFF REQ, RBC 4.66, MCV 89.3, MCH 30.8, RDW 12.4, MPV 8.8, Gran % 74.6, Lymphocytes % 19.0 L, Monocytes % 5.4, Eosinophils % 0.5, Basophils % 0.5, Absolute Granulocytes 5.4, Absolute Lymphocytes 1.4, Absolute Monocytes 0.4, Absolute Eosinophils 0, Absolute Basophils 0, PUBS MCHC 34.5 Assessment/Plan Assessment: Ms. Gaitan is a 62-year-old female with past medical history of vestibular migraines, TIA, BPV, COPD, H. pylori, chronic back/neck pain, anxiety, depression, hypothyroidism, and osteoporosis who presents with palpitations. Problem List: 1. Focal weakness/dizziness 2. Hypothyroidism 3. Palpitations #Focal weakness/dizziness: Patient has had extensive workup for multiple neurological abnormalities. However, looking at the neurology notes from February, does not seem like she ever had left-sided weakness like she has now. MRI in February did not show any acute or chronic infarcts. -MRI -Appreciate neurology recommendations #Palpitations: The director of head start overnight did not show any sinus pauses, PVCs, or other abnormalities. EKG and troponins sensory is been negative. Carotid Dopplers did not show significant stenosis. Her hypothyroidism may be causing her to feel palpitations. -Appreciate cardiology recommendations -TTE -Telemetry monitoring #Hypothyroidism: Patient has subclinical hypothyroidism and she refuses treatment because of the side effects that she gets. -Consider endocrinology consult DVT prophylaxis with Lovenox Regular diet Full code Problem List: 1. Palpitations Pain Ratin Pain Location: no pain Pain Goal: Remain pain free Pain Plan: see a/p Tomorrow's Labs & Rationales: none
--- NOTE | 2017-11-26 07:48 | ULTRASOUND REPORT ---
EXAMINATION: DUPLEX BILATERAL CAROTID ULTRASOUND CLINICAL INFORMATION: Weakness, syncope, headache COMPARISON: None. TECHNIQUE: Duplex bilateral carotid US was performed using real-time ultrasound and Doppler techniques (integrating B-mode 2D vascular images, Doppler spectral analysis and color flow Doppler imaging). These techniques were utilized to interrogate the extracranial carotid and vertebral arteries bilaterally. The degree of stenosis is based off criteria similar to NASCET. FINDINGS: 1. On the right: Plaque is present at the carotid bifurcation but velocity measurements are normal and do not suggest a stenosis of greater than 50% diameter reduction in the right ICA. The vertebral artery is patent demonstrating antegrade flow. 2. On the left: No plaque is present at the carotid bifurcation and all velocity measurements are normal and do not suggest a stenosis of greater than 50% diameter reduction in the left ICA. The vertebral artery is patent demonstrating antegrade flow. The external carotid arteries appear unremarkable. IMPRESSION: There is plaque present in the right internal carotid artery with normal velocities consistent with a minimal 0-49% stenosis. The left side is normal with no plaque seen.
--- NOTE | 2017-11-26 12:39 | PN- Cardiology ---
Subjective Subjective: The patient continues to complain of palpitations but there has been no evidence of any significant arrhythmias on the emergency room monitor. She continues to feel profound fatigue. Her other plates are somewhat nondescript. Objective Vital Signs and I&Os Vital Signs Date Time Temp Pulse Resp B/P B/P Pulse O2 O2 Flow FiO2 Mean Ox Delivery Rate 11/26 1101 97.8 80 20 118/80 98 Room Air 11/26 0727 98.5 77 12 112/68 97 Room Air 11/26 0248 97.8 71 22 128/70 98 Room Air 11/25 2352 97.8 82 18 130/70 97 Room Air 11/25 2133 98.3 94 18 112/66 94 Room Air 11/25 1825 98.0 98 18 136/62 98 Room Air 11/25 1437 Room Air 11/25 1417 98.0 74 18 131/74 98 Room Air Intake & Output 11/26 1600 11/26 0800 11/26 0000 11/25 1600 11/25 0800 11/25 0000 Intake Total 1000 Output Total Balance 1000 Intake, IV 1000 Patient 122 lb 122 lb Weight Weight Reported by Patient Measurement Method Current Medications: Current Medications Sig/David Start time Last Medication Dose Route Stop Time Status Admin Acetaminophen 650 MG Q4P PRN 11/25 2315 AC PO Aspirin Buffered 325 MG DAILY 11/25 1824 AC 11/26 PO 1103 Atorvastatin Calcium 40 MG 1700 11/26 1700 AC PO Enoxaparin Sodium 40 MG DAILY 11/26 1000 AC 11/26 SC 1103 Lorazepam 0.5 MG DAILY 11/26 1000 AC 11/26 PO 12/03 0959 1103 Lorazepam 0 .STK-MED ONE 11/25 1431 DC .ROUTE Lorazepam 1 MG ONCE ONE 11/25 1345 DC 11/25 IV 11/25 1346 1436 Sodium Chloride 1,000 ML BOLUS ONE 11/25 1345 DC 11/25 IV 11/25 1444 1436 Results Last 48 Hrs of Labs/Mics: Laboratory Tests 11/26/17 0600: Triglycerides Cancelled, Cholesterol Cancelled, LDL Cholesterol, Calc Cancelled, HDL Cholesterol Cancelled, Cholesterol/HDL Ratio Cancelled 11/26/17 0243: Troponin I < 0.01, Triglycerides 59, Cholesterol 199, LDL Cholesterol, Calc 129, HDL Cholesterol 59, Cholesterol/HDL Ratio 3, Free T4 1.18 11/25/17 2100: Troponin I < 0.01 11/25/17 1218: Anion Gap 10, Estimated GFR > 60, BUN/Creatinine Ratio 10.0, Glucose 106 H, Calcium 10.0, Total Bilirubin 0.5, AST 16, ALT 25, Alkaline Phosphatase 66, Troponin I < 0.01, Total Protein 7.2, Albumin 4.3, Globulin 2.9, Albumin/ Globulin Ratio 1.5, Triglycerides 79, Cholesterol 237 H, LDL Cholesterol, Calc 154 H, HDL Cholesterol 68 H, Cholesterol/HDL Ratio 3, TSH 5.570 H, CBC w Diff NO MAN DIFF REQ, RBC 4.66, MCV 89.3, MCH 30.8, RDW 12.4, MPV 8.8, Gran % 74.6, Lymphocytes % 19.0 L, Monocytes % 5.4, Eosinophils % 0.5, Basophils % 0.5, Absolute Granulocytes 5.4, Absolute Lymphocytes 1.4, Absolute Monocytes 0.4, Absolute Eosinophils 0, Absolute Basophils 0, PUBS MCHC 34.5 Assessment/Plan Assessment/Plan Assessment: 1. Palpitations 2. Atypical chest pain 3. History of TIA 4. Mild bilateral carotid plaque on ultrasound 5. History of syncope 6. Hyperlipidemia 7. Elevated TSH Recommendations: -Continue telemetry monitoring while here in the hospital -Echocardiogram pending -Fasting lipid profile noted -From a cardiac standpoint, the patient appears to be stable at the present time. Her troponins and ECGs are unchanged. -The patient should follow-up with cardiology as an outpatient for event monitoring and pharmacologic nuclear stress test to complete her evaluation. Continue telemetry? Yes
--- NOTE | 2017-11-26 13:31 | MRI REPORT ---
EXAMINATION: MR BRAIN WITHOUT CONTRAST CLINICAL INFORMATION: Stroke. Weakness. COMPARISON: CT scan of the head 11/25/2017. Brain MRI 03/12/2017. TECHNIQUE: MRI of the brain without contrast was obtained using routine sequences. FINDINGS: There are scattered nonspecific foci of T2 FLAIR signal hyperintensity within the periventricular white matter that most likely represent a chronic manifestation of small vessel ischemia. No evidence of acute territorial infarct. No pathological magnetic susceptibility artifact. Intracranial vascular flow voids are grossly maintained. There is no intracranial mass effect or midline shift. No abnormal extra-axial collection. Lateral and third ventricles are proportionate to the subarachnoid spaces and there is no hydrocephalus. Midline structures including the cervicomedullary junction are normal. Bone marrow signal intensity is normal. There is no mastoid or middle ear effusion. Visualized paranasal sinuses are well-aerated with exception of mild disease within the ethmoid air cells. Globes and orbits are symmetric. IMPRESSION: There are scattered chronic small vessel ischemic changes within the periventricular white matter. No evidence of acute territorial infarct or hemorrhage.
--- NOTE | 2017-11-26 13:59 | PN- Cardiology ---
Subjective Subjective: * This patient reports frequent palpitations but none occuring during the time on the monitor. She also has an intermittent pressure under her left breast but none today. * sinus rhythm Objective Vital Signs and I&Os Vital Signs Date Time Temp Pulse Resp B/P B/P Pulse O2 O2 Flow FiO2 Mean Ox Delivery Rate 11/26 1252 77 22 140/86 97 Room Air 11/26 1101 97.8 80 20 118/80 98 Room Air 11/26 0727 98.5 77 12 112/68 97 Room Air 11/26 0248 97.8 71 22 128/70 98 Room Air 11/25 2352 97.8 82 18 130/70 97 Room Air 11/25 2133 98.3 94 18 112/66 94 Room Air 11/25 1825 98.0 98 18 136/62 98 Room Air 11/25 1437 Room Air 11/25 1417 98.0 74 18 131/74 98 Room Air Intake & Output 11/26 1600 11/26 0800 11/26 0000 11/25 1600 11/25 0800 11/25 0000 Intake Total 1000 Output Total Balance 1000 Intake, IV 1000 Patient 122 lb 122 lb Weight Weight Reported by Patient Measurement Method Physical Exam: General: WD/WN female in NAD; alert and oriented x 3 Neck: no JVD Heart: RRR w/o murmur Lungs: clear bilaterally Extremities: no edema Assessment/Plan Assessment/Plan * This patient will need a workup including an echocardiogram, treadmill nuclear stress test and Holter monitor. We will discharge this patient today with a Holter monitor and will arrange for the remainder of her testing to be done as an outpatient. * Continue aspirin and a statin. Follow up in the office (Dr. Rutherford) in one week. Continue telemetry? No
--- NOTE | 2017-11-26 16:05 | Cons- Neurology ---
General Information and HPI Consulting Request Date of Consult: 11/26/17 Requested By: Ever Fisher MD Reason for Consult: weakness Source of Information: patient, old records Exam Limitations: no limitations History of Present Illness: This is a very pleasant 62-year-old woman who presented to [facility] due to diffuse generalized weakness of over 6 weeks. Her weakness started gradually and slowly progressed. She feels that all 4 limbs are weak. It is not clear she is really weak or fatigued. She has a background of migraines that has been treated for over 8 years unsuccessfully. She has been on multiple indications for prevention including Botox and other treatment regimens that have failed. Her headaches are daily usually around the left eye and involve nausea and photophobia. They range anywhere from 1-9 in intensity. They can be quite unrelenting at times at which time she would get infusion at the [facility]. She also has on other history of infections. 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 She also noticed that when she was treated with Botox she was sick for 2 months systemically. Currently she notes she had lost over 25 pounds over the last 6 months with other good explanation. She admits to constant neck pain. She denies any fever but has been feeling ill, dizzy, nauseous over the last few weeks. She has also had continuous palpitations and chest pain when using tryptophans and was asked to abstain from them by cardiology. Allergies/Medications Allergies: Coded Allergies: hydromorphone (Severe, THROAT FEELS LIKE IT'S CLOSING/RASH 12/06/16) dexlansoprazole (RASH 12/06/16) promethazine (From PHENERGAN) (ANXIETY 03/11/17) NSAIDS (Non-Steroidal Anti-Inflamma (ABDOMINAL PAIN 12/06/16) Home Med List: Acetaminophen (Tylenol Extra Strength) 500 MG TABLET 1 TAB PO PRN PAIN ( Reported) Butalb/Acetaminophen/Caffeine (Plnedx-Dmluokul-Fxaf 50-300-40) 50 MG-300 MG-40 MG CAPSULE 1-2 TAB PO PRN MIGRAINES (Reported) Eletriptan HBr (Relpax) 40 MG TABLET 1 TAB PO AD PRN MIGRAINES (Reported) Lorazepam 0.5 MG TABLET 0.5 TAB PO DAILY ANXIETY (Reported) Lorazepam (Ativan) 0.5 MG TABLET 1 TAB PO QPM ANXIETY (Reported) Review of Systems Review of Systems: As per HPI. Past History Travel History Traveled to [place] past 21 day No Medical History Neurological: migraine, TIA, vertigo EENT: allergies Cardiovascular: arrhythmia Respiratory: COPD Gastrointestinal: H PYLORI Hepatic: NONE Renal: NONE Musculoskeletal: chronic back pain, osteoarthritis, CHRONIC NECK PAIN Psychiatric: anxiety, depression Endocrine: hypothyroidism Blood Disorders: NONE Cancer(s): NONE PROTEOMICS SCIENTIST/Reproductive: NONE Surgical History Surgical History: non-contributory Family History Relations & Conditions If Any: MOTHER FH: diabetes mellitus FH: HTN (hypertension) FATHER, , Age 40-50; Cause: Rheumatic heart disease. FH: rheumatic heart disease Psychosocial History Who Do You Live With? son and his girlfriend Services at Home: None Primary Language: Upper Sorbian Smoking Status: Former Smoker ETOH Use: denies use Illicit Drug Use: denies illicit drug use Functional Ability ADLs Independent: dressing, eating, toileting, bathing. Ambulation: independent IADLs Independent: shopping, housework, finances, food prep, telephone, transportation , medication admin. Exam & Diagnostic Data Vital Signs and I&O Vital Signs Date Time Temp Pulse Resp B/P B/P Pulse O2 O2 Flow FiO2 Mean Ox Delivery Rate 11/26 1511 97.9 77 18 146/84 96 Room Air 11/26 1252 77 22 140/86 97 Room Air 11/26 1101 97.8 80 20 118/80 98 Room Air 11/26 0727 98.5 77 12 112/68 97 Room Air 11/26 0248 97.8 71 22 128/70 98 Room Air 11/25 2352 97.8 82 18 130/70 97 Room Air 11/25 2133 98.3 94 18 112/66 94 Room Air 11/25 1825 98.0 98 18 136/62 98 Room Air Intake & Output 11/26 1600 11/26 0800 11/26 0000 Intake Total Output Total Balance Patient 122 lb Weight Physical Exam: General: The patient is in no distress. Pleasant and cooperative. MSE: Alert and oriented 3. Good attention and concentration. Good short-term memory and fund of knowledge reflected through our conversation. Language is fluent with good comprehension and repetition. Cardiovascular: S1 and S2 are normal, regular rate and rhythm, and normal pedal pulses. Vision: Fundoscopic exam does not reveal any abnormalties. Visual cunningham are intact. Neurological: Extra ocular movements intact, ESE, left eyelid ptosis, tongue midline, uvula raises equally in the midline, V1-V3 sensation to touch is intact and equal bilaterallty, sternocleidomastoid and trapezius are strong on both sides, muscles of mastication are strong. No dysarthria noted. Motor exam reveals no abnormality of strength. Power is minus 5-5 throughout the distribution distally and proximally with slightly more weakness on the left. Sensory exam did not reveal any deficits to touch, temperature, vibration and proprioception. Reflexes are symmetric bilaterally. Cerebellar exam does not reveal any dysmetria. Rapid alternating movements are intact bilaterally. Gait is steady with normal base. Last 48 Hours of Lab Results: Laboratory Tests 11/26 11/26 11/25 0600 0243 2100 Chemistry Troponin I (< 0.11 ng/ml) < 0.01 < 0.01 Triglycerides (<150 mg/dL) Cancelled 59 Cholesterol (<200 MG/DL) Cancelled 199 LDL Cholesterol, Calc (65 - 129 mg/dL) Cancelled 129 HDL Cholesterol (40 - 60 mg/dL) Cancelled 59 Cholesterol/HDL Ratio (0.00 - 4.23 %) Cancelled 3 Free T4 (0.78 - 2.44 ng/dL) 1.18 11/25 1218 Chemistry Sodium (137 - 145 mmol/L) 141 Potassium (3.5 - 5.1 mmol/L) 3.9 Chloride (98 - 107 mmol/L) 101 Carbon Dioxide (22 - 30 mmol/L) 29 Anion Gap (5 - 16) 10 BUN (7 - 17 mg/dL) 6 L Creatinine (0.5 - 1.0 mg/dL) 0.6 Estimated GFR (>60 ml/min) > 60 BUN/Creatinine Ratio (7 - 25 %) 10.0 Glucose (65 - 99 mg/dL) 106 H Calcium (8.4 - 10.2 mg/dL) 10.0 Total Bilirubin (0.2 - 1.3 mg/dL) 0.5 AST (14 - 36 U/L) 16 ALT (9 - 52 U/L) 25 Alkaline Phosphatase (<127 U/L) 66 Troponin I (< 0.11 ng/ml) < 0.01 Total Protein (6.3 - 8.2 g/dL) 7.2 Albumin (3.5 - 5.0 g/dL) 4.3 Globulin (1.9 - 4.2 gm/dL) 2.9 Albumin/Globulin Ratio (1.1 - 2.2 %) 1.5 Triglycerides (<150 mg/dL) 79 Cholesterol (<200 MG/DL) 237 H LDL Cholesterol, Calc (65 - 129 mg/dL) 154 H HDL Cholesterol (40 - 60 mg/dL) 68 H Cholesterol/HDL Ratio (0.00 - 4.23 %) 3 TSH (0.270 - 4.200 uIU/mL) 5.570 H Hematology CBC w Diff NO MAN DIFF REQ WBC (4.8 - 10.8 /CUMM) 7.2 RBC (4.20 - 5.40 /CUMM) 4.66 Hgb (12.0 - 16.0 G/DL) 14.4 Hct (37 - 47 %) 41.6 MCV (81.0 - 99.0 FL) 89.3 MCH (27.0 - 31.0 PG) 30.8 RDW (11.5 - 14.5 %) 12.4 Plt Count (130 - 400 /CUMM) 235 MPV (7.4 - 10.4 FL) 8.8 Gran % (42.2 - 75.2 %) 74.6 Lymphocytes % (20.5 - 51.1 %) 19.0 L Monocytes % (1.7 - 9.3 %) 5.4 Eosinophils % (0 - 5 %) 0.5 Basophils % (0.0 - 2.0 %) 0.5 Absolute Granulocytes (1.4 - 6.5 /CUMM) 5.4 Absolute Lymphocytes (1.2 - 3.4 /CUMM) 1.4 Absolute Monocytes (0.10 - 0.60 /CUMM) 0.4 Absolute Eosinophils (0.0 - 0.7 /CUMM) 0 Absolute Basophils (0.0 - 0.2 /CUMM) 0 PUBS MCHC (33.0 - 37.0 G/DL) 34.5 Imaging/Other Studies: MRI brain was reviewed directly and was deemed normal. Assessment/Plan Assessment: 62-year-old woman with nods and atypical migraine disorder that is not only intractable but also has atypical features. First, she has had an infection of histoplasmosis within the same left eye where she gets her daily migraines. Second, she has had other infections and now severe weight loss if no good explanation. Third she presents with 6 weeks of diffuse weakness which has not happened before despite having migrainous for 8 years. Therefore I would consider other possibilities such as Mollaret's meningitis, other systemic infections and think that she should rule out such possibilities as malignancies. Recommendations: 1. Can be discharged after getting a screening cervical spine CT to ensure she doesn't have any cord compression although doubt is unlikely due to her exam being normal. 2. Should send out CK to assess whether she has any myopathy (this can be followed up later that she can be discharged). 3. I asked her to contact the [facility] where she is followed for liver cysts and asked to be seen by . there are due to 25 pound weight loss and a history of breast cancer in her mother. 4. She will follow-up with me in December and we will possibly do an LP to ensure she does not have Mollarets and to rule out other entities. We will also explore other treatments for migraine. Consult Acknowledgment - Thank you for your consult request.
--- NOTE | 2017-11-26 16:24 | Event Note ---
Event Note Event Note: This patient reports frequent palpitations but none occuring during the time on the monitor. She also has an intermittent pressure under her left breast but none today. She is on sinus rhythm. Telemetry monitoring was uneventful for the past 24 hours. Patient was seen by production support supervisor Dr. Rutherford this evening. * Dr. Rutherford recommended outpatient workup including echocardiogram, treadmill nuclear stress test. * Also advised to discharge the patient today with Holter monitor. * Holter monitor was placed at bedside. * However neurologist on board, recommended some imaging studies. * Patient will stay tonight. * Informed attending physician. * We will get imaging studies and discharge her tomorrow on Holter monitoring.
[2017-11-26 17:30] VITALS: BP 142/75
--- NOTE | 2017-11-26 18:37 | CT SCAN REPORT ---
EXAMINATION: CT CERVICAL SPINE WITHOUT CONTRAST CLINICAL INFORMATION: Weakness. Assess for cord compression. COMPARISON: MRI of the cervical spine from 08/26/2017. TECHNIQUE: CT scanning of the cervical spine was performed without contrast. Coronal and sagittal reformatted images were generated. DLP: 293 mGy-cm FINDINGS: There is no evidence of fracture or traumatic subluxation. There is minor anterolisthesis of C2 on C3 measuring no more than 1 mm, unchanged. There is straightening of the normal cervical lordosis. The atlantoaxial and atlantooccipital articulations are maintained. There is mild intervertebral disc height loss with endplate spurring at C5-C6. No abnormal density is visualized within the cervical canal given the limitations of soft tissue resolution on CT. There has been no convincing change in the appearance of the cervical spine across modalities from 08/26/2017. The visualized mastoid air cells and middle ear cavities are clear. No cervical adenopathy. No focal thyroid lesions are visualized. The pharyngeal and laryngeal contours appear unremarkable. The lung apices appear clear. The cerebellar tonsils are normally positioned. SPINAL LEVELS: C2-C3: No significant canal or foraminal stenosis is visualized. C3-C4: There is left greater than right uncovertebral hypertrophy which appears to mildly narrow the left foramen. The canal and right foramen appear well-maintained. C4-C5: There is disc osteophyte complex mildly narrowing the ventral canal. There is moderate bilateral foraminal stenosis. C5-C6: There is disc osteophyte complex with a central partially calcified disc protrusion. This mildly narrows the canal and may contact the ventral margin of the cord, unchanged. There is fairly high-grade right foraminal narrowing. The left foramen is well-maintained. C6-C7: There is mild disc osteophyte complex without significant canal stenosis. There is mild left greater than right uncovertebral hypertrophy without significant foraminal narrowing. C7-T1: No canal or foraminal stenosis. IMPRESSION: Stable spondylosis relative to the prior MRI of 08/26/2017. There is mild canal stenosis most notable at C5-C6. There are varying degrees of foraminal stenosis including moderate foraminal stenosis at C4-C5 bilaterally, and high-grade foraminal stenosis on the right at C5-C6.
--- NOTE | 2017-11-26 19:27 | Patient Discharge Instructions ---
Discharge Instructions General Discharge Information You were seen/treated for: 1. Focal weakness/dizziness 2. Hypothyroidism 3. Palpitations Special Instructions: F/U PCP IN ONE WEEK AFTER D/C. F/U DOOR SERVICEMAN IN 2-3 DAYS AFTER DISCHARGE. F/U NEUROLOGIST IN ONE WEEK AFTER DISCHARGE. F/U CK THAT WAS ORDERED WHEN SHE WAS IN THE HOSPITAL. PLEASE contact the [facility] where she is followed for liver cysts and asked to be seen by Dr. BENJAMIN due to 25 pound weight loss and a history of breast cancer in her mother. She has to follow-up with neurologist in December and will possibly get an LP to ensure she does not have Mollarets and to rule out other entities. will need a workup including an echocardiogram, treadmill nuclear stress test and Holter monitor as op. . We will discharge this patient today with a Holter monitor and will arrange for the remainder of her testing to be done as an outpatient. Diet Continue normal diet: Yes Activity Full Activity/No Limits: Yes Acute Coronary Syndrome Inclusion Criteria At DC or during hospital stay patient has or had the following: ACS DIAGNOSIS No Discharge Core Measures Meds if any: Prescribed or Continued at Discharge Meds if any: NOT Prescribed or Continued at Discharge Congestive Heart Failure Inclusion Criteria At DC or during hospital stay patient has or had the following: CHF DIAGNOSIS No Discharge Core Measures Meds if any: Prescribed or Continued at Discharge Meds if any: NOT Prescribed or Continued at Discharge Cerebrovascular accident Inclusion Criteria At DC or during hospital stay patient has or had the following: CVA/TIA Diagnosis Yes Discharge Core Measures Meds if any: Prescribed or Continued at Discharge Meds if any: NOT Prescribed or Continued at Discharge Venous thromboembolism Inclusion Criteria VTE Diagnosis No VTE Type NONE VTE Confirmed by (Test) NONE Discharge Core Measures - Per Current guidelines, there needs to be overlap - treatment for the first 5 days of Warfarin therapy. - If discharged on Warfarin prior to 5 days of - overlap therapy, the patient will need to be - assessed for post discharge needs including - *Post discharge parental anticoagulation - *Warfarin and/or parental anticoagulation education - *Follow up date to check INR post discharge At least 5 days overlap therapy as Inpatient Yes Meds if any: Prescribed or Continued at Discharge Note: Overlap Therapy is Warfarin and Anticoagulant Meds if any: NOT Prescribed or Continued at Discharge
--- NOTE | 2017-11-26 19:40 | Event Note ---
Event Note Event Note: ct cervical spine was okay. No cord compression. As per neurologist, plan is to discharge her if ct cervical spine is okay. patient wants to leave tonight as ct was okay. Also she will go home with holter monitor. Discussed with attending Dr Abernathy. Discharge instructions discussed in detail with the patient at bed side. * F/U PCP IN ONE WEEK AFTER D/C. * F/U APPEALS WRITER IN 2-3 DAYS AFTER DISCHARGE. * F/U NEUROLOGIST IN ONE WEEK AFTER DISCHARGE. * F/U CK THAT WAS ORDERED WHEN SHE WAS IN THE HOSPITAL. Advised to contact the [facility] where she is followed for liver cysts and asked to be seen by Dr. BENJAMIN due to 25 pound weight loss and a history of breast cancer in her mother. She has to follow-up with neurologist in December and will possibly get an LP to ensure she does not have Mollarets and to rule out other entities. will need a workup including an echocardiogram, treadmill nuclear stress test and Holter monitor as op. We will discharge this patient today with a Holter monitor and will arrange for the remainder of her testing to be done as an outpatient.
--- NOTE | 2017-11-27 17:35 | ECHOCARDIOGRAM REPORT ---
RED CHAVEZ Age: 62 : 1955 Gender: F Exam Date: 11/26/2017 18:51 Exam Location: ER Ht (in): 66 Wt (lb): 122 BSA: 1.60 BP: 146 / 84 Ordering Physician: Óscar Sharp MD Referring Physician: Mitch Rutherford MD, PhD Technologist: Cheri Frazier SKY Room Number: ER#[id number] Indications: LIGHTHEADEDNESS Rhythm: Sinus Technical Quality: good FINDINGS Left Ventricle Normal left ventricular size, wall thickness and systolic function with no obvious regional wall motion abnormalities. Normal left ventricular diastolic filling pattern for age. The ejection fraction is visually estimated at 70%. Right Ventricle The right ventricle is normal in size and function. Right Atrium The right atrium is normal in size. Left Atrium The left atrium is normal in size. The interatrial septum is intact. Mitral Valve The mitral valve is normal in structure and function. There is trace mitral regurgitation. Aortic Valve Structurally normal aortic valve without significant sclerosis or stenosis. There is no aortic regurgitation. Tricuspid Valve The tricuspid valve is normal in structure and function. There is mild tricuspid regurgitation. Pulmonary artery systolic pressure is normal. Pulmonic Valve Structurally normal pulmonic valve. There is trace pulmonic regurgitation. Pericardium Normal pericardium without effusion. No pleural effusion. Great Vessels Normal aortic root dimension. The aortic arch and great vessels are well seen and are normal. CONCLUSIONS 1. Normal EF of 70%. 2. Trace mitral regurgitation. 3. Mild tricuspid regurgitation. 4. Trace pulmonic regurgitation. Mitch Rutherford M.D. (Electronically Signed) Final Date: 27 November 2017 17:35 MEASUREMENTS (Male / Female) Normal Values 2D ECHO LV Diastolic Diameter PLAX 3.2 cm 4.2 - 5.9 / 3.9 - 5.3 cm LV Systolic Diameter PLAX 2.1 cm 2.1 - 4.0 cm LV Fractional Shortening PLAX 34.4 % 25 - 46 % LV Ejection Fraction 2D Teich 64.8 % IVS Diastolic Thickness 1.1 cm LVPW Diastolic Thickness 1.0 cm LV Relative Wall Thickness 0.7 RV Internal Dim ED PLAX 2.7 cm 1.9 - 3.8 cm LVOT Diameter 1.8 cm Aortic Root Diameter 2.6 cm LA Systolic Diameter LX 3.4 cm 3.0 - 4.0 / 2.7 - 3.8 cm LA Volume 25.0 cm 18 - 58 / 22 - 52 cm Ascending Aorta Diameter 3.1 cm DOPPLER AV Peak Velocity 136.0 cm/s AV Peak Gradient 7.4 mmHg AV Mean Velocity 83.5 cm/s AV Mean Gradient 3.0 mmHg AV Velocity Time Integral 26.2 cm LVOT Peak Velocity 115.0 cm/s LVOT Peak Gradient 5.3 mmHg LVOT Mean Velocity 63.8 cm/s LVOT Mean Gradient 2.0 mmHg LVOT Velocity Time Integral 27.0 cm LVOT Stroke Volume 68.7 cm AV Area Cont Eq vti 2.6 cm AV Area Cont Eq pk 2.2 cm MV Peak Velocity 88.9 cm/s MV Peak Gradient 3.2 mmHg MV Mean Velocity 59.9 cm/s MV Mean Gradient 2.0 mmHg Mitral E Point Velocity 63.7 cm/s Mitral A Point Velocity 60.7 cm/s Mitral E to A Ratio 1.0 MV PHT Velocity 86.3 cm/s MV Deceleration [place] 462.0 cm/s MV Pressure Half Time 56.0 ms MV Area PHT 3.9 cm MV Deceleration Time 251.0 ms TR Peak Velocity 225.0 cm/s TR Peak Gradient 20.3 mmHg Right Atrial Pressure 5.0 mmHg Pulmonary Artery Systolic Pressu 25.3 mmHg Right Ventricular Systolic Press 25.3 mmHg PV Peak Velocity 89.6 cm/s PV Peak Gradient 3.2 mmHg PV Mean Velocity 60.9 cm/s PV Mean Gradient 2.0 mmHg PV Velocity Time Integral 19.7 cm LV E' Lateral Velocity 9.1 cm/s Mitral E to LV E' Lateral Ratio 7.0 LV E' Septal Velocity 5.3 cm/s Mitral E to LV E' Septal Ratio 12.1
== END 2017-11-26 20:30 ==
LOC: ERH 11:06 → ERHI 16:54 → ENRESERV 17:39 → CANRESERV 17:39 → ERHI 11-26 19:24
PROVIDERS: Internal Medicine; Physician Assistant Medical
DX: R00.2 Palpitations (principal); G43.809 Other migraine, not intractable, without status migrainosus; Z86.73 Personal history of transient ischemic attack (TIA), and cerebral infarction without residual deficits; J44.9 Chronic obstructive pulmonary disease, unspecified; M54.9 Dorsalgia, unspecified; M54.2 Cervicalgia; R42 Dizziness and giddiness; F41.9 Anxiety disorder, unspecified; F32.9 Major depressive disorder, single episode, unspecified; E03.9 Hypothyroidism, unspecified; M81.0 Age-related osteoporosis without current pathological fracture
CPT/HCPCS: 6090; 70551; 71045; 93005; 93010; 93306; 96372; 96374; G0378; J1650

== ENCOUNTER 2018-07-31 11:25 | Emergency (ER) | payer OTHER ==
[~2018-07-31] VITALS: Ht 167.6 cm; Wt 62.6 kg
[~2018-07-31 11:25] MED LIST changes: +CIPRO500 M1 PO; +FIORINAL 50-321 EACH PO; +FLAGYL500 MG PO; +TRAMADOL HCL50 M1 PO
--- NOTE | 2018-07-31 12:22 | ED GENERAL ADULT ---
History of Present Illness General Chief Complaint: Chest Pain Stated Complaint: BIBA CP Source: patient Exam Limitations: no limitations Vital Signs & Intake/Output Vital Signs & Intake/Output Vital Signs Date Time Temp Pulse Resp B/P B/P Pulse O2 O2 Flow FiO2 Mean Ox Delivery Rate 07/31 1444 67 18 164/79 100 Room Air 07/31 1156 Room Air 07/31 1134 98.4 84 18 194/89 100 Room Air Allergies Coded Allergies: hydromorphone (Severe, THROAT FEELS LIKE IT'S CLOSING/RASH 12/07/17) dexlansoprazole (RASH 12/07/17) promethazine (From PHENERGAN) (ANXIETY 12/07/17) NSAIDS (Non-Steroidal Anti-Inflamma (ABDOMINAL PAIN 12/07/17) Reconcile Medications Lorazepam 0.5 MG TABLET 0.5 TAB PO DAILY ANXIETY (Reported) Mirtazapine 30 MG TABLET 1 TAB PO QPM SLEEP (Reported) Triage Note: BIBA AFTER ONSET OF LEFT SHOULDER/NECK PAIN, DIAPHORESIS, NAUSEA WITHOUT EMESIS. NO RECENT ILLNESS, NO REPORT OF RESPIRATORY CHANGES. PRESENTS WITH 2/10 LEFT ANTERIOR CHEST DISCOMFORT. Triage Nurses Notes Reviewed? yes HPI: 63-year-old white female with history of anxiety and an arrhythmia presents with onset of severe left upper chest pain radiating into the left arm last night making it difficult for her to sleep which resolved on its own and then recurred while the patient was in group therapy 1 hour ago. She reports associated diaphoresis with both last night and this morning's event. She denied in the palpitations, low back pain, paresthesias, headache, but does admit to some nausea associated with the symptoms. Patient arrives via EMS after being given 4 chewable aspirin. She continues to complain of a dull ache in her left upper chest at this time. Patient had a normal stress test approximately one year ago by Dr. Rutherford. She has no risk factors for PE or DVT. Past History Travel History Traveled to [place] past 21 day No Medical History Any Pertinent Medical History? see below for history Neurological: migraine, TIA, vertigo EENT: allergies Cardiovascular: arrhythmia MURMER Respiratory: COPD Gastrointestinal: H PYLORI Hepatic: NONE Renal: NONE Musculoskeletal: chronic back pain, osteoarthritis, CHRONIC NECK PAIN Psychiatric: anxiety, depression Endocrine: hypothyroidism Blood Disorders: NONE Cancer(s): NONE MANAGER TRAINEE/Reproductive: NONE History of MRSA: No History of VRE: No History of CDIFF: No Surgical History Surgical History: non-contributory Psychosocial History Who do you live with Family Services at Home None What is your primary language Wallisian Tobacco Use: Never used ETOH Use: denies use Family History Family History, If Any: MOTHER FH: diabetes mellitus FH: HTN (hypertension) FATHER, , Age 40-50; Cause: Rheumatic heart disease. FH: rheumatic heart disease Hx Contributory? Yes Review of Systems Review of Systems Constitutional: Reports: see HPI, diaphoresis. Cardiovascular: Denies: see HPI. All Other Systems: Reviewed and Negative Physical Exam Physical Exam General Appearance: well developed/nourished, no apparent distress, alert, awake , anxious Head: atraumatic, normal appearance Eyes: Bilateral: PERRL, EOMI. Ears, Nose, Throat: normal pharynx, normal ENT inspection, hearing grossly normal Neck: normal inspection, supple, full range of motion Respiratory: normal breath sounds, chest non-tender, no respiratory distress, quiet respiration, lungs clear Cardiovascular: regular rate/rhythm Peripheral Pulses: 4+ carotid (R), 4+ carotid (L), 4+ brachial (R), 4+ brachial (L), 4+ radial (R), 4+ radial (L) Gastrointestinal: soft, non-tender, no organomegaly Back: normal inspection Extremities: normal inspection, normal capillary refill, normal range of motion, no edema Neurologic/Psych: awake, alert, oriented x 3, depressed affect Reflexes: 4+: bicep (R), bicep (L), knee (R), knee (L). Skin: normal color, warm/dry Core Measures ACS in differential dx? Yes CVA/TIA Diagnosis: No Sepsis Present: No Sepsis Focused Exam Completed? No Progress Differential Diagnoses I considered the following diagnoses in my evaluation of the patient: [ACS, arrhythmia, electrolyte abnormality, anxiety,] Plan of Care: Orders Procedure Date/time Status TROPONIN LEVEL 07/31 1500 Complete EKG 07/31 1500 Active TROPONIN LEVEL 07/31 1205 Complete MAGNESIUM 07/31 1205 Complete COMPREHENSIVE METABOLIC PANEL 07/31 1205 Complete CBC WITHOUT DIFFERENTIAL 07/31 1205 Complete EKG 07/31 1125 Active Laboratory Tests 07/31/18 1443: Troponin I < 0.01 07/31/18 1226: Anion Gap 7, Estimated GFR > 60, BUN/Creatinine Ratio 10.0, Glucose 91, Calcium 9.6, Magnesium 2.1, Total Bilirubin 0.3, AST 19, ALT 23, Alkaline Phosphatase 75 , Troponin I < 0.01, Total Protein 6.7, Albumin 4.1, Globulin 2.6, Albumin/ Globulin Ratio 1.6, CBC w Diff NO MAN DIFF REQ, RBC 4.43, MCV 89.9, MCH 30.3, MCHC 33.7, RDW 13.0, MPV 8.1, Gran % 74.1, Lymphocytes % 18.9 L, Monocytes % 5.4, Eosinophils % 0.5, Basophils % 1.1, Absolute Granulocytes 5.5, Absolute Lymphocytes 1.4, Absolute Monocytes 0.4, Absolute Eosinophils 0, Absolute Basophils 0.1 Initial ED EKG: normal axis, normal intervals, normal p-waves, LVH, no ST T wave changes Repeat EKG: unchanged Comments: Case discussed with Dr. Rutherford who knows the patient well and recommends outpatient management. He will see her tomorrow. Patient feels markedly improved after receiving Ativan. Departure Departure Time of Disposition: 1611 Disposition: HOME OR SELF CARE Condition: Stable Clinical Impression Primary Impression: Chest pain Qualifiers: Chest pain type: other chest pain Qualified Code: R07.89 - Other chest pain Referrals: Tashia Zarate DO (PCP/Family) Dr. Rutherford Additional Instructions: Please call Dr. Rutherford's office in the morning or early next week for repeat evaluation. Departure Forms: Customer Survey General Discharge Information Critical Care Note Critical Care Note Critical Care Time: non-applicable
[2018-07-31 12:35] LABS: ABSOLUTE BASOPHIL COUNT 0.1 /CUMM (0.0-0.2); ABSOLUTE EOSINOPHIL COUNT 0 /CUMM (0.0-0.7); ABSOLUTE GRANULOCYTE CT 5.5 /CUMM (1.4-6.5); ABSOLUTE LYMPH COUNT 1.4 /CUMM (1.2-3.4); ABSOLUTE MONOCYTE COUNT 0.4 /CUMM (0.10-0.60); BASOPHIL % 1.1 % (0.0-2.0); EOSINOPHIL % 0.5 % (0-5); GRANULOCYTE % 74.1 % (42.2-75.2); HEMATOCRIT 39.8 % (37-47); MEAN CORPUSCULAR HGB 30.3 PG (27.0-31.0); MEAN CORPUSCULAR HGB CONC 33.7 G/DL (33.0-37.0); MEAN CORPUSCULAR VOLUME 89.9 FL (81.0-99.0); MEAN PLATELET VOLUME 8.1 FL (7.4-10.4); PLATELET COUNT 265 /CUMM (130-400); RED BLOOD CELL CT 4.43 /CUMM (4.20-5.40); WHITE BLOOD CELL COUNT 7.4 /CUMM (4.8-10.8)
--- NOTE | 2018-07-31 12:35 | RADIOLOGY REPORT ---
EXAMINATION: XR PORTABLE CHEST CLINICAL INFORMATION: Chest pain COMPARISON: CXR from 11/25/[address] from 08/07/2017. TECHNIQUE: Portable frontal view of the chest was obtained. FINDINGS: The lungs are well-inflated and clear. Trachea is midline in position. No interstitial disease, consolidation, mass, pneumothorax or pleural effusion. The cardiac silhouette is normal in size. The mediastinal, hilar and diaphragmatic contours are normal. Small, 0.4 cm calcification projecting over the medial left lung apex appears to correspond to subclavian artery calcification. The visualized bones are normal. The upper abdomen is unremarkable. IMPRESSION: No acute pulmonary disease.
[2018-07-31] MEDS ORDERED: MIRTAZAPINE30 M2 PO (13:02)
[2018-07-31 16:30] VITALS: BP 182/87
== END 2018-07-31 16:47 ==
LOC: ERH 11:25
PROVIDERS: Emergency Medicine
DX: R07.9 Chest pain, unspecified (principal); R11.0 Nausea; F41.9 Anxiety disorder, unspecified; E03.9 Hypothyroidism, unspecified; J44.9 Chronic obstructive pulmonary disease, unspecified
CPT/HCPCS: 71045; 93005; 93010